=== PATIENT | male | born 1970 | race Caucasian/White ===

== ENCOUNTER 2019-11-09 16:20 | Inpatient (IN) | payer OTHER ==
--- NOTE | 2019-11-09 17:49 | HP ---
CIWA Score - Admission Criteria [facility] Guidelines: Admission for Medically Managed Detox: Requires at least one of the followin. CIWA greater than 12 2. Seizures within the past 24 hours 3. Delirium tremens within the past 24 hours 4. Hallucinations within the past 24 hours 5. Acute intervention needed for co occurring medical disorder 6. Acute intervention needed for co occurring psychiatric disorder 7. Severe withdrawal that cannot be handled at a lower level of care (continued vomiting, continued diarrhea, abnormal vital signs) requiring intravenous medication and/or fluids 8. Admitting History and Physical - Smoking History Smoking history: Unknown if ever smoked Patient History - Smoking Cessation Smoking history: Unknown if ever smoked Breathalyzer - Breathalyzer Breathalyzer: 0.215
--- NOTE | 2019-11-09 17:54 | BHS.RME ---
Substance Use & Tx History - Substance Use History Alcohol Substance amount: 3 x 12oz. beer Frequency of use: More than 3 times per week Date of Last Use: 10/12/19 (sent to ER for suicidal thoughts) - Last Treatment Date of last treatment: 1st admission Where was last treatment: Detox Physical/Psych/Mental Status - Behavior Eye Contact: Normal - Cooperativeness Cooperativeness: Cooperative - Thinking Thought Processes: Logical Thought content: Future oriented - Physical Health Problems Is patient presently having any pain?: No Does patient presently have any injuries (include location): No Does patient currently have a fever: No CIWA Nausea/Vomitin (vomiting x 5) Muscle Tremors: 4-Moderate,w/Arms Extend Anxiety: 3 Agitation: 3 Paroxysmal Sweats: 2 Orientation: 0-Oriented Tacttile Disturbances: 0-None Auditory Disturbances: 0-None Visual Disturbances: 0-None Headache: 0-None Present CIWA-Ar Total Score: 17 Treatment Recommendation - Level of Care Level of Care: Opioid Treatment Program (OTP) (Alcohol detoxification)
--- OUTSIDE RECORDS SUMMARY | 2019-11-09 19:14 | XMS ---
:1970 [facility] Organization [facility] Providers Name Role Phone FABIANO ROACH MD Unavailable Unavailable DAVISSEYENNI Buchanan Unavailable Unavailable ED STAFF PHYSICIAN Unavailable Unavailable MD BISMARK Unavailable Unavailable MD FLORA Unavailable Unavailable Re-disclosure Warning The records that you are about to access may contain information from federally- assisted alcohol or drug abuse programs. If such information is present, then the following federally mandated warning applies: This information has been disclosed to you from records protected by federal confidentiality rules (42 CFR part 2). The federal rules prohibit you from making any further disclosure of this information unless further disclosure is expressly permitted by the written consent of the person to whom it pertains or as otherwise permitted by 42 CFR part 2. A general authorization for the release of medical or other information is NOT sufficient for this purpose. The Federal rules restrict any use of the information to criminally investigate or prosecute any alcohol or drug abuse patient.The records that you are about to access may contain highly sensitive health information, the redisclosure of which is protected by Article 27-F of the [facility] Public Health law. If you continue you may haveaccess to information: Regarding HIV / AIDS; Provided by facilities licensed or operated by the [facility] Office of Mental Health; or Provided by the [facility] Office for People With Developmental Disabilities. If such information is present, then the following [facility] mandated warning applies: This information has been disclosed to you from confidential records which are protected by state law. State law prohibits you from making any further disclosure of this information without the specific written consent of the person to whom it pertains, or as otherwise permitted by law. Any unauthorized further disclosure in violation of state law may result in a fine or penitentiary sentence or both. A general authorization for the release of medical or other information is NOT sufficient authorization for further disclosure. Encounters Encounter Providers Location Date Indications Data Source(s ) Inpatient Attender: NOEMI [facility]56[facility]00 PM [facility]T [facility] AAttender: STAFF ED - 10/15/2019 STAFF 01:00:00 PM EDT PHYSICIANAdmitter: NOEMI FRANKLIN AReferrer: NOEMI FRANKLIN A Patient discharged. Inpatient Attender: [facility] 07[facility]13/2019 07:16[facility] ED[facility] - [address] [place] [address] 09:44:00 PM EDT Patient discharged. [facility] 07/13/2019 05:26:00 PM EDT - [address] [place] [address] 07:40:00 PM EDT Patient discharged. Inpatient Attender: [facility] 09/23/2018 09:33:00 [facility] - 10/16/2018 [facility] 10:21:00 PM EDT Patient discharged. Outpatient [facility] 09/23/2018 05:57:00 PM EDT - [address] [place] [address] 10:20:00 PM EDT Patient discharged. Medications Medication Brand Start Product Dose Route [facility] Indications Reaction Description Data Name Date Form Instructions Instructions Source(s) gabapentin Gabape ORAL complet Gabapen tin - [facility] 400 MG Oral ntin - 2018 Table ed 400 MG ORA L [facility] Tablet 400 MG 12:00: t Tablet Hospita l ORAL 00 AM Tablet EDT pantoprazol Proton ORAL complet Proton ix - [facility] e 40 MG ix - 2018 Table ed 40 MG ORAL Hal nts Delayed 40 MG 12:00: t Tablet, Hospit al Release ORAL 00 AM Enteric Oral Tablet Tablet EDT Coated [Protonix] , Enteri c Coated Loratadine Clarit ORAL complet Clariti n - [facility] 10 MG Oral in - 2018 Table ed 10 MG ORAL [facility] Tablet 10 MG 12:00: t Tablet Hospital [Claritin] ORAL 00 AM Tablet EDT pantoprazol Proton ORAL complet Proton ix - [facility] e 40 MG ix - 2018 Table ed 40 MG ORAL Hal nts Delayed 40 MG 12:00: t Tablet, Hospit al Release ORAL 00 AM Enteric Oral Tablet Tablet EDT Coated [Protonix] , Enteri c Coated gabapentin gabape 1 complet Vira t 400 MG Oral ntin ed Jacki Capsule 400 mg Medical gabapentin Capsul Center 400 mg e, Capsule, Ordere Ordered By: d [facility]: 1 David, capsule MDDire oral three ctions times a day : 1 capsul e oral three times a day Folic Acid foLIC 1 complet Saint 1 MG Oral Acid 1 ed Jacki Tablet mg Medical foLIC Acid Tablet Center 1 mg , Tablet, Ordere Ordered By: d By: [facility]: 1 tablet David, oral daily MDDire ctions : 1 tablet oral daily Clonazepam clonaz 1 complet Vira t 1 MG Oral ePAM 1 ed Jacki Tablet mg Medical clonazePAM Tablet Center 1 mg , Tablet, Ordere Ordered By: d By: [facility]: 1 tablet David, oral twice MDDire a day ctions : 1 tablet oral twice a day Omeprazole omepra 1 complet Vira t 20 MG zole ed Jacki Delayed 20 mg Medical Release capsul Center Oral e,blas Capsule yed omeprazole releas 20 mg e(DR/Olga capsule,del C), ayed Ordere release(DR/ d By: ANGELIC), Childe Ordered By: vanna [facility] MDDirection MDDire s: 1 ctions capsule : 1 oral daily capsul e oral daily oxcarbazepi OXcarb 1 complet Soham nt ne 600 MG azepin ed Jacki Oral Tablet e 600 Medical OXcarbazepi mg Center ne 600 mg Tablet Tablet, , Ordered By: Shiraz rincon By: Basilio Bustos MDDirection [facility] s: [address] oral twice David, a day MDDire ctions : 1 tablet oral twice a day nalOXone Naloxo 1 complet Narcan Vira t (Narcan) 4 ne ed [facility] mg/actuatio Hydroc Medica l n hlorid Center spray,non-a e 40 erosol, MG/ML Ordered By: Nasal Childebert Cold[place], [facility] 1 puff nasal every two hours PRN substance misuse OLANZapine complet [facility] 5 mg Tablet [facility] OLANZapine complet [facility] 20 mg [facility] OLANZapine complet [facility] 10 mg [facility] loratadine complet [facility] 10 mg [facility] OLANZapine complet [facility] 20 mg [facility] Insurance Providers Payer name Policy type Policy ID Covered Covered alliance party's Policy P serina / Coverage alliance party ID relationship to Delaney Inf ormation type delaney W [id number] 01 [id number] DEMETRI W [id number] 01 [id number] DEMETRI CARE W [id number] [id number] DEMETRI [id number] SP [id number] 600 HEALTH NON CAP DEMETRI [id number] SP [id number] 600 HEALTH NON CAP SELF PAY [id number] Self [id number] MEDICAID INP [id number] Self [id number] Y REHAB [facility] DEMETRI [id number] Self [id number] CARE SELF PAY 00 Self 00 MEDICAID INP [id number] Self [id number] Y REHAB Problems, Conditions, and Diagnoses Code Display Name Description Problem Type Effective Data Sour ce(s) Dates 62191815 Bipolar disorder Bipolar disorder Complaint 09/23/2018 [facility]00 PM Hospital EDT [id number] Tobacco user Tobacco user Complaint 09/23/2018 [facility] (finding[facility] 12:[facility]:00 PM Hospital EDT [id number] Cocaine abuse Cocaine abuse Complaint 09/23/2018 [facility]order[facility] 12:00:00 PM Hospital EDT [id number] Alcohol abuse Alcohol abuse Complaint 09/23/2018 [facility] (disorder) 12:00:00 PM Hospital EDT R19.7 Diarrhea, DIARRHEA, Diagnosis 10/15/2019 [facility] unspecified UNSPECIFIED 01:00:[address] EDT K21.9 Gastro-esophageal GASTRO-ESOPHAGEAL Diagnosis 10/15/2019 [facility] reflux disease REFLUX DISEASE 01:00:00 PM Medic al Center without WITHOUT EDT esophagitis ESOPHAGITIS Y90.7 Blood alcohol BLOOD ALCOHOL Diagnosis 10/15/2019 [facility]ov[facility] fernández level of 200-239 LEVEL OF 200-239 [facility]:00:[facility] [place] [facility]100 ml MG/100 ML EDT F10.229 Alcohol ALCOHOL Diagnosis 10/15/2019 [facility] dependence with DEPENDENCE WITH 01:00:00 PM Med ical Center intoxication, INTOXICATION, EDT unspecified UNSPECIFIED E87.1 Hypo-osmolality HYPO-OSMOLALITY Diagnosis 10/15/2019 Vira yris Jacki and hyponatremia AND HYPONATREMIA 01:00:00 PM [facility] EDT F10.239 Alcohol ALCOHOL Diagnosis 10/12/2019 [facility] dependence with DEPENDENCE WITH 11:56:00 PM Med ical Center withdrawal, WITHDRAWAL, EDT unspecified UNSPECIFIED Results ID Date Data Source CHMROUTINECCDA.[id number] 10/15/2019 06:01:00 AM EDT [facility] -0400 Name Value Range Interpretation Description Data Sup porting Code Source(s) Document(s ) Phosphate 2.5-4.5 <content [facility] [Mass/volume] styleCode="Fred Jacki in Serum or d">Phosphorus Medical Plasma </content>3.8 Center MG/DL<content styleCode="Abiola lics"> (2.5-4.5 MG/DL)</conten t> Magnesium 1.6-2.3 <content [facility] [Mass/volume] styleCode="Fred Jacki in Serum or d">Magnesium Medical Plasma </content>2.2 Center MG/DL<content styleCode="Abiola lics"> (1.6-2.3 MG/DL)</conten t> ID Date Data Source Liver 10/14/2019 07:21:00 AM EDT [facility] Profile.[id number] Name Value Range Interpretation Description Data Sup porting Code Source(s) Document(s ) Alkaline 38-126 <content [facility] phosphatase styleCode="Bold"> Jacki [Enzymatic Alkaline Medical activity/volume] Phosphatase (ALP) Cente r in Serum or Plasma </content>69 IU/L<content styleCode="Italic s"> (38-126 IU/L)</content> Aspartate 17-59 <content [facility] aminotransferase styleCode="Bold"> Mac hs [Enzymatic Aspartate Medical activity/volume] Aminotransferase Center in Serum or Plasma (AST) </content>52 IU/L<content styleCode="Italic s"> (17-59 IU/L)</content> Alanine 7-50 <content [facility] aminotransferase styleCode="Bold"> Mac hs [Enzymatic Alanine Medical activity/volume] Aminotransferase Center in Serum or Plasma (ALT) </content>18 IU/L<content styleCode="Italic s"> (7-50 IU/L)</content> Bilirubin.total 0.2-1.3 <content [facility] [Mass/volume] in styleCode="Bold"> Mac hs Serum or Plasma Bilirubin Total Medical </content>0.7 Center MG/DL<content styleCode="Italic s"> (0.2-1.3 MG/DL)</content> Albumin 3.5-5.0 <content [facility] [Mass/volume] in styleCode="Bold"> Mac hs Serum or Plasma Albumin Medical </content>3.5 Center G/DL<content styleCode="Italic s"> (3.5-5.0 G/DL)</content> ID Date Data Source GFR(Creatinine).[id number] 10/14/2019 07:21:00 AM EDT [facility] 0-0400 Name Value Range Interpretation Code Description Data Caitlin rce(s) Supporting Document(s ) UNK > 60 <content [facility] styleCode="Bold"> Medical Cent er EGFR </content>110 GFR<content styleCode="Italic s"> (> 60 GFR)</content> ID Date Data Source CHMROUTINECCDA.[id number] 10/14/2019 07:21:00 AM EDT [facility] -0400 Name Value Range Interpretation Description Data Sup porting Code Source(s) Document(s ) UNK 2.3-3.5 <content [facility] styleCode="Bold Medical ">Globulin Center </content>3.2 G/DL<content styleCode="Ital ics"> (2.3-3.5 G/DL)</content> Protein 6.3-8.2 <content [facility] Jacki [Mass/volum styleCode="Bold Medical e] in Serum ">Total Protein Center or Plasma </content>6.7 G/DL<content styleCode="Ital ics"> (6.3-8.2 G/DL)</content> UNK >= 1.0 <content [facility] Jacki styleCode="Bold Medical ">AG Ratio Center </content>1.1 <content styleCode="Ital ics"> (>= 1.0 )</content> ID Date Data Source [facility].[id number] 10/14/2019 07:21:00 AM EDT [facility] Center Name Value Range Interpretation Description Data Sup porting Code Source(s) Document(s ) Sodium 137-145 Below low <content [facility] [Moles/volume] in normal styleCode="Bold"> [facility] Serum or Plasma Sodium Medical </content>133 Center MEQ/L L<content styleCode="Italic s"> (137-145 MEQ/L)</content> Potassium 3.5-5.3 <content [facility] [Moles/volume] in styleCode="Bold"> Robbie [facility] Serum or Plasma Potassium Medical </content>4.0 Center MEQ/L<content styleCode="Italic s"> (3.5-5.3 MEQ/L)</content> UNK 9-20 Below low <content [facility] normal styleCode="Bold"> Jacki BUN </content>7 Medical MG/DL L<content Center styleCode="Italic s"> (9-20 MG/DL)</content> Creatinine 0.5-1.3 <content [facility] [Mass/volume] in styleCode="Bold"> Mac hs Serum or Plasma Creatinine Medical </content>0.8 Center MG/DL<content styleCode="Italic s"> (0.5-1.3 MG/DL)</content> Chloride 98-107 <content [facility] [Moles/volume] in styleCode="Bold"> [facility] Serum or Plasma Chloride Medical </content>104 Center MEQ/L<content styleCode="Italic s"> (98-107 MEQ/L)</content> Carbon dioxide, 22-30 <content [facility] total styleCode="Bold"> Jacki [Moles/volume] in Carbon Dioxide Medical Serum or Plasma </content>24 Center MEQ/L<content styleCode="Italic s"> (22-30 MEQ/L)</content> Alanine 7-50 <content [facility] aminotransferase styleCode="Bold"> Mac hs [Enzymatic Alanine Medical activity/volume] Aminotransferase Center in Serum or Plasma (ALT) </content>18 IU/L<content styleCode="Italic s"> (7-50 IU/L)</content> Glucose 74-106 Above high <content Saint [Mass/volume] in normal styleCode="Bold"> Mac hs Serum or Plasma Glucose Medical </content>112 Center MG/DL H<content styleCode="Italic s"> (74-106 MG/DL)</content> Calcium 8.4-10. <content [facility] [Mass/volume] in 2 styleCode="Bold"> Mac hs Serum or Plasma Calcium Medical </content>9.2 Center MG/DL<content styleCode="Italic s"> (8.4-10.2 MG/DL)</content> Aspartate 17-59 <content [facility] aminotransferase styleCode="Bold"> Mac hs [Enzymatic Aspartate Medical activity/volume] Aminotransferase Center in Serum or Plasma (AST) </content>52 IU/L<content styleCode="Italic s"> (17-59 IU/L)</content> UNK > 60 <content Saint styleCode="Bold"> Jacki EGFR Medical </content>110 Center GFR<content styleCode="Italic s"> (> 60 GFR)</content> Alkaline 38-126 <content [facility] phosphatase styleCode="Bold"> Jacki [Enzymatic Alkaline Medical activity/volume] Phosphatase (ALP) Cente r in Serum or Plasma </content>69 IU/L<content styleCode="Italic s"> (38-126 IU/L)</content> Bilirubin.total 0.2-1.3 <content [facility] [Mass/volume] in styleCode="Bold"> Mac hs Serum or Plasma Bilirubin Total Medical </content>0.7 Center MG/DL<content styleCode="Italic s"> (0.2-1.3 MG/DL)</content> Albumin 3.5-5.0 <content [facility] [Mass/volume] in styleCode="Bold"> Mac hs Serum or Plasma Albumin Medical </content>3.5 Center G/DL<content styleCode="Italic s"> (3.5-5.0 G/DL)</content> ID Date Data Source Urinalysis.[id number] 10/13/2019 01:50:00 AM EDT [facility] 0 Name Value Range Interpretation Description Data Sup porting Code Source(s) Document(s ) UNK CLEAR <content Saint styleCode="Fred Trivedis d">Urine Medical Clarity Center </content>MARYLU R <content styleCode="Abiola lics"> (CLEAR )</content> UNK NEGATIVE <content [facility] styleCode[facility]">Urine Medical Bilirubin Center </content>NEGA TIVE <content styleCode="Abiola lics"> (NEGATIVE )</content> Color of Urine YELLOW <content Saint styleCode="Fred Trivedis d">Color, Medical Urine Center </content>YELL OW <content styleCode="Abiola lics"> (YELLOW )</content> Glucose NEGATIVE <content [facility] [Mass/volume] styleCode="Fred Echeverria in Urine by d">Urine Medical Test strip Glucose Center </content>NEGA TIVE MG/DL<content styleCode="Abiola lics"> (NEGATIVE MG/DL)</conten t> Hemoglobin NEGATIVE <content [facility] [Presence] in styleCode="Fred Trivedis Urine by Test d">Urine Blood Medical strip </content>NEGA Center TIVE <content styleCode="Abiola lics"> (NEGATIVE )</content> Protein NEGATIVE <content Saint [Mass/volume] styleCode="Fred Trivedis in Urine by d">Urine Medical Test strip Protein Center </content>NEGA TIVE MG/DL<content styleCode="Abiola lics"> (NEGATIVE MG/DL)</conten t> pH of Urine by 4.5-8.0 <content Saint Test strip styleCode="Fred Jacki d">Urine pH Medical </content>6.5 Center <content styleCode="Abiola lics"> (4.5-8.0 )</content> Ketones NEGATIVE <content Saint [Mass/volume] styleCode="Fred Jacki in Urine by d">Urine Medical Test strip Ketone Center </content>NEGA TIVE MG/DL<content styleCode="Abiola lics"> (NEGATIVE MG/DL)</conten t> Specific 1.015-1.02 Below low normal <content [facility] gravity of 5 styleCode="Fred Trivedis Urine by Test d">Urine Medical strip Specific Center Beals </content><= 1.005 L<content styleCode="Abiola lics"> (1.015-1.025 )</content> Nitrite NEGATIVE <content Saint [Presence] in styleCode="Fred Trivedis Urine by Test d">Urine Medical strip Nitrite Center </content>NEGA TIVE <content styleCode="Abiola lics"> (NEGATIVE )</content> Urobilinogen 0.2-1.0 <content Saint [Units/volume] styleCode="Fred Trivedis in Urine by d">Urine Medical Test strip Urobilinogen Center </content>0.2 MG/DL<content styleCode="Abiola lics"> (0.2-1.0 MG/DL)</conten t> Leukocyte NEGATIVE <content [facility] esterase styleCode="Fred Trivedis [Presence] in d">Urine Medical Urine by Test Leukocyte Center strip </content>NEGA TIVE <content styleCode="Abiola lics"> (NEGATIVE )</content> ID Date Data Source Liver 10/13/2019 01:50:00 AM EDT [facility] Profile.[id number] Name Value Range Interpretation Description Data Sup porting Code Source(s) Document(s ) Alkaline 38-126 <content [facility] phosphatase styleCode="Bold"> Jacki [Enzymatic Alkaline Medical activity/volume] Phosphatase (ALP) Cente r in Serum or Plasma </content>70 IU/L<content styleCode="Italic s"> (38-126 IU/L)</content> Alanine 7-50 <content [facility] aminotransferase styleCode="Bold"> Mac hs [Enzymatic Alanine Medical activity/volume] Aminotransferase Center in Serum or Plasma (ALT) </content>19 IU/L<content styleCode="Italic s"> (7-50 IU/L)</content> Aspartate 17-59 <content [facility] aminotransferase styleCode="Bold"> Mac hs [Enzymatic Aspartate Medical activity/volume] Aminotransferase Center in Serum or Plasma (AST) </content>42 IU/L<content styleCode="Italic s"> (17-59 IU/L)</content> Bilirubin.total 0.2-1.3 <content Saint [Mass/volume] in styleCode="Bold"> Mac hs Serum or Plasma Bilirubin Total Medical </content>0.3 Center MG/DL<content styleCode="Italic s"> (0.2-1.3 MG/DL)</content> UNK 0.0-0.3 <content Saint styleCode="Bold"> [facility] Bilirubin, Direct Medical </content>< 0.2 Center MG/DL<content styleCode="Italic s"> (0.0-0.3 MG/DL)</content> Albumin 3.5-5.0 <content Saint [Mass/volume] in styleCode="Bold"> Mac hs Serum or Plasma Albumin Medical </content>4.4 Center G/DL<content styleCode="Italic s"> (3.5-5.0 G/DL)</content> ID Date Data Source HematologyRou.[id number] 10/13/2019 01:50:00 AM EDT [facility]am nt [facility] 0400 Name Value Range Interpretation Description Data Sup porting Code Source(s) Document(s ) Leukocytes 4.4-11.0 <content Saint [#/volume] in styleCode="Bold [facility] Blood by ">White Blood Medical Automated count Cell Count Center </content>7.65 KCUMM<content styleCode="Ital ics"> (4.4-11.0 KCUMM)</content > Hemoglobin 13.5-17. <content Saint [Mass/volume] in 5 styleCode="Bold Jacki Blood ">Hemoglobin Medical </content>14.6 Center G/DL<content styleCode="Ital ics"> (13.5-17.5 G/DL)</content> Erythrocytes 4.4-5.9 <content Saint [#/volume] in styleCode="Bold Jacki Blood by ">Red Blood Medical Automated count Cell Count Center </content>4.62 MCUMM<content styleCode="Ital ics"> (4.4-5.9 MCUMM)</content > Erythrocyte mean 80.0-100 <content Saint corpuscular .0 styleCode="Bold Jacki volume [Entitic ">Mean Medical volume] by Corpuscular Center Automated count Volume </content>94.2 FL<content styleCode="Ital ics"> (80.0-100.0 FL)</content> Hematocrit 41.0-53. <content Saint [Volume 0 styleCode="Bold Jacki Fraction] of ">Hematocrit Medical Blood by </content>43.5 Center Automated count %<content styleCode="Ital ics"> (41.0-53.0 %)</content> Erythrocyte mean 32.0-37. <content [facility] corpuscular 0 styleCode="Bold Jacki hemoglobin ">Mean Corpus. Medical concentration Hgb Center [Mass/volume] by Concentration Automated count (MCHC) </content>33.6 G/DL<content styleCode="Ital ics"> (32.0-37.0 G/DL)</content> Erythrocyte mean 26.0-34. <content [facility] corpuscular 0 styleCode="Bold Jacki hemoglobin ">Mean Medical [Entitic mass] Corposcular Center by Automated Hemoglobin count </content>31.6 PG<content styleCode="Ital ics"> (26.0-34.0 PG)</content> Platelets 130-400 Above high <content Saint [#/volume] in normal styleCode="Bold Jacki Blood by ">Platelet Medical Automated count Count Center </content>410 KCUMM H<content styleCode="Ital ics"> (130-400 KCUMM)</content > Erythrocyte 11.5-14. <content [facility] distribution 5 styleCode="Bold Jacki width [Ratio] by ">Red Cell Medical Automated count Distribution Center Width </content>13.4 %<content styleCode="Ital ics"> (11.5-14.5 %)</content> Platelet mean 8.0-11.0 <content Saint volume [Entitic styleCode="Bold Jacki volume] in Blood ">Mean Platelet Medical by Automated Volume Center count </content>9.4 FL<content styleCode="Ital ics"> (8.0-11.0 FL)</content> UNK 0 <content Saint styleCode="Bold Jacki ">Nucleated Red Medical Blood Cell Center </content>0.0 /100<content styleCode="Ital ics"> (0 /100)</content> UNK 0.0 <content Saint styleCode="Bold Jacki ">Nucleated Red Medical Blood Cell Center Count </content>0.00 KCUMM<content styleCode="Ital ics"> (0.0 KCUMM)</content > ID Date Data Source GFR(Creatinine).[id number] 10/13/2019 01:50:00 AM EDT [facility] 0-0400 Name Value Range Interpretation Code Description Data Caitlin rce(s) Supporting Document(s ) UNK > 60 <content [facility] Jacki styleCode="Bold"> Medical Cent er EGFR </content>110 GFR<content styleCode="Italic s"> (> 60 GFR)</content> ID Date Data Source CHMROUTINECCDA.[id number] 10/13/2019 01:50:00 AM EDT [facility] -0400 Name Value Range Interpretation Description Data Sup porting Code Source(s) Document(s ) Cannabinoids <content Saint [Presence] in styleCode="Fred Jacki Urine by Screen d">Cannabinoid Medical method >50 ng/mL s Center </content>NEGA TIVE NG/ML (Reference Range: not available)<br/ > ID Date Data Source BMP.[id number] 10/13/2019 01:50:00 AM EDT [facility] Name Value Range Interpretation Description Data Sup porting Code Source(s) Document(s ) Chloride 98-107 <content Saint [Moles/volume] in styleCode="Bold"> Robbie phs Serum or Plasma Chloride Medical </content>105 Center MEQ/L<content styleCode="Italic s"> (98-107 MEQ/L)</content> Carbon dioxide, 22-30 Below low <content [facility] total normal styleCode="Bold"> Jacki [Moles/volume] in Carbon Dioxide Medical Serum or Plasma </content>20 Center MEQ/L L<content styleCode="Italic s"> (22-30 MEQ/L)</content> UNK 9-20 Below low <content [facility] normal styleCode="Bold"> Jacki BUN </content>2 Medical MG/DL L<content Center styleCode="Italic s"> (9-20 MG/DL)</content> Potassium 3.5-5.3 <content Saint [Moles/volume] in styleCode="Bold"> Robbie [facility] Serum or Plasma Potassium Medical </content>3.5 Center MEQ/L<content styleCode="Italic s"> (3.5-5.3 MEQ/L)</content> Sodium 137-145 <content Saint [Moles/volume] in styleCode="Bold"> Robbie [facility] Serum or Plasma Sodium Medical </content>141 Center MEQ/L<content styleCode="Italic s"> (137-145 MEQ/L)</content> Glucose 74-106 <content Saint [Mass/volume] in styleCode="Bold"> Mac hs Serum or Plasma Glucose Medical </content>87 Center MG/DL<content styleCode="Italic s"> (74-106 MG/DL)</content> UNK > 60 <content Saint styleCode="Bold"> Jacki EGFR Medical </content>110 Center GFR<content styleCode="Italic s"> (> 60 GFR)</content> Creatinine 0.5-1.3 <content Saint [Mass/volume] in styleCode="Bold"> Mac hs Serum or Plasma Creatinine Medical </content>0.8 Center MG/DL<content styleCode="Italic s"> (0.5-1.3 MG/DL)</content> Aspartate 17-59 <content [facility] aminotransferase styleCode="Bold"> Mac hs [Enzymatic Aspartate Medical activity/volume] Aminotransferase Center in Serum or Plasma (AST) </content>42 IU/L<content styleCode="Italic s"> (17-59 IU/L)</content> Calcium 8.4-10. <content Saint [Mass/volume] in 2 styleCode="Bold"> Mac hs Serum or Plasma Calcium Medical </content>9.6 Center MG/DL<content styleCode="Italic s"> (8.4-10.2 MG/DL)</content> Alanine 7-50 <content [facility] aminotransferase styleCode="Bold"> Mac hs [Enzymatic Alanine Medical activity/volume] Aminotransferase Center in Serum or Plasma (ALT) </content>19 IU/L<content styleCode="Italic s"> (7-50 IU/L)</content> Alkaline 38-126 <content [facility] phosphatase styleCode="Bold"> Jacki [Enzymatic Alkaline Medical activity/volume] Phosphatase (ALP) Cente r in Serum or Plasma </content>70 IU/L<content styleCode="Italic s"> (38-126 IU/L)</content> Bilirubin.total 0.2-1.3 <content [facility] [Mass/volume] in styleCode="Bold"> Mac hs Serum or Plasma Bilirubin Total Medical </content>0.3 Center MG/DL<content styleCode="Italic s"> (0.2-1.3 MG/DL)</content> Albumin 3.5-5.0 <content [facility] [Mass/volume] in styleCode="Bold"> Mac hs Serum or Plasma Albumin Medical </content>4.4 Center G/DL<content styleCode="Italic s"> (3.5-5.0 G/DL)</content> ID Date Data Source [id number] 10/13/2019 12:00:00 AM EDT [facility] Name Value Range Interpretation Code Description Data Caitlin rce(s) Supporting Document(s ) 2019-nCoV [facility] RNA XXX NAVID+probe- Imp This lab was ordered by [facility] and reported by [facility] [facility]. ID Date Data Source [id number] 09/27/2019 07:00:00 PM EDT [facility] Name Value Range Interpretation Description Data Sup porting Code Source(s) Document(s ) 2019 Novel [facility] Coronavirus RNA Interpretation Unspecified Specimen Qualitative NAVID Probe Detection This lab was ordered by [facility] and reported by [facility]. ID Date Data Source [id number] 2019 07:13:00 PM EDT [facility] Name Value Range Interpretation Description Data Sup porting Code Source(s) Document(s ) SARS [facility] Coronavirus 2 RNA Presence Respiratory Specimen NAVID Probe Detection This lab was ordered by [facility] and reported by [facility]. ID Date Data Source [id number] 08/30/2019 04:49:00 PM EDT [facility] Name Value Range Interpretation Description Data Sup porting Code Source(s) Document(s ) SARS [facility] Coronavirus 2 RNA Presence Respiratory Specimen NAVID Probe Detection This lab was ordered by [facility] and reported by [facility]. ID Date Data Source [id number] 07/05/2019 01:57:00 PM EDT [facility] Name Value Range Interpretation Description Data Sup porting Code Source(s) Document(s ) COV2N [facility] NASOPHARYNGEAL Reportable This lab was ordered by [facility] and reported by [facility]. ID Date Data Source [id number] 06/17/2019 11:41:00 AM EDT [facility] Name Value Range Interpretation Description Data Sup porting Code Source(s) Document(s ) SARS [facility] Coronavirus 2 RNA Presence Respiratory Specimen NAVID Probe Detection This lab was ordered by [facility] and reported by [facility]. Procedure Social History Code Duration Value Status Description Data Source(s ) Smoking 10/13/2019 12:33:00 Daily Smoker completed Daily Smoker S [facility] EDT Center Smoking 10/13/2019 07:22:00 Daily Smoker completed Daily Smoker S [facility] EDT Center Smoking 10/13/2019 02:36:00 Daily Smoker completed Daily Smoker S [facility] EDT Center Smoking 10/13/2019 12:06:00 Daily Smoker completed Daily Smoker S [facility] EDT Center Smoking 10/13/2019 12:01:00 Daily Smoker completed Daily Smoker S [facility] EDT Center Vital Signs ID Date Data Source UNK Name Value Range Interpretation Code Description Data Source(s) Body temperature 36.476116 Shira 36.864553 [facility] Respiratory rate 18 /min 18 /min [facility] Heart rate 72 /min 72 /min [facility] Diastolic blood 48 mm[Hg] 48 mm[Hg] [facility] Systolic blood 90 mm[Hg] 90 mm[Hg] [facility] Body temperature 36.459343 Shira 36.074795 Shira [facility] Respiratory rate 20 /min 20 /min [facility] Heart rate 76 /min 76 /min [facility] Diastolic blood 55 mm[Hg] 55 mm[Hg] [facility] Systolic blood 107 mm[Hg] 107 mm[Hg] [facility] Body temperature 36.437773 Shira 36.603339 Sh[facility] Respiratory rate 18 /min 18 /min [facility] Heart rate 62 /min 62 /min [facility] Diastolic blood 53 mm[Hg] 53 mm[Hg] [facility] Systolic blood 97 mm[Hg] 97 mm[Hg] [facility] Body temperature 36.915659 Shira 36.907280 Shira [facility] Respiratory rate 20 /min 20 /min [facility] Heart rate 80 /min 80 /min [facility] Diastolic blood 70 mm[Hg] 70 mm[Hg] [facility] Systolic blood 120 mm[Hg] 120 mm[Hg] [facility] Body temperature 37.100321 Shira 37.267569 Shira [facility] Respiratory rate 18 /min 18 /min [facility] Heart rate 79 /min 79 /min [facility] Diastolic blood 67 mm[Hg] 67 mm[Hg] [facility] Systolic blood 110 mm[Hg] 110 mm[Hg] [facility] Medical Center Body weight 79.920348 kg 79.274852 kg [facility] Measured [facility] Center Body height 182.300398 cm 182.622033 cm [facility] Body mass index 23.68 kg/m2 23.68 kg/m2 [facility] (BMI) [Ratio] Medical Center Body height 182.925236 cm 182.704883 cm [facility] Body temperature 37.279822 Shira 37.070339 [facility] Respiratory rate 20 /min 20 /min [facility] Heart rate 92 /min 92 /min [facility] Diastolic blood 64 mm[Hg] 64 mm[Hg] [facility] Systolic blood 105 mm[Hg] 105 mm[Hg] [facility] Body temperature 36.874307 Shira 36.486090 Shira [facility] Respiratory rate 18 /min 18 /min [facility] Heart rate 83 /min 83 /min [facility] Diastolic blood 72 mm[Hg] 72 mm[Hg] [facility] Systolic blood 115 mm[Hg] 115 mm[Hg] [facility] Medical Center Oxygen 99 % 99 % [facility] saturation in Medical Arterial blood Center by Pulse oximetry Body temperature 37.459497 Shira 37.319196 Shira [facility] Respiratory rate 18 /min 18 /min [facility] Heart rate 96 /min 96 /min [facility] Diastolic blood 72 mm[Hg] 72 mm[Hg] [facility] Systolic blood 106 mm[Hg] 106 mm[Hg] [facility] Medical Center Oxygen 97 % 97 % [facility] saturation in Medical Arterial blood Center by Pulse oximetry Body temperature 37.016081 Shira 37.851749 Shira [facility] Respiratory rate 17 /min 17 /min [facility] Heart rate 95 /min 95 /min [facility] Diastolic blood 70 mm[Hg] 70 mm[Hg] [facility] Systolic blood 104 mm[Hg] 104 mm[Hg] [facility] Center Oxygen 95 % 95 % [facility] saturation in Medical Arterial blood Center by Pulse oximetry Body temperature 37.111420 Shira 37.212285 Shira [facility] Respiratory rate 17 /min 17 /min [facility] Medical [place] Heart rate 97 /min 97 /min [facility] Diastolic blood 70 mm[Hg] 70 mm[Hg] [facility] pressure Medical Center Systolic blood 104 mm[Hg] 104 mm[Hg] [facility] pressure Medical Center Oxygen 98 % 98 % [facility] saturation in Medical Arterial blood Center by Pulse oximetry Oxygen 99 % 99 % [facility] saturation in Medical Arterial blood Center by Pulse oximetry Body weight 196 lbs 196 lbs [facility] Body temperature 97.4 Fahrenheit 97.4 Fahrenh t [facility] Diastolic blood 78 mmHg 78 mmHg [facility] Systolic blood 116 mmHg 116 mmHg [facility] Respiratory rate 18 bpm 18 bpm [facility] Heart rate 97 bpm 97 bpm [facility] Body temperature 96.9 Fahrenheit 96.9 Fahrenh t [facility] Diastolic blood 74 mmHg 74 mmHg [facility] Systolic blood 106 mmHg 106 mmHg [facility] Respiratory rate 18 bpm 18 bpm [facility] Heart rate 87 bpm 87 bpm [facility] Body temperature 97.4 Fahrenheit 97.4 Fahrenh t [facility] Body temperature 97.2 Fahrenheit 97.2 Fahrenh t [facility] Diastolic blood 75 mmHg 75 mmHg [facility] Systolic blood 124 mmHg 124 mmHg [facility] Respiratory rate 18 bpm 18 bpm [facility] Heart rate 96 bpm 96 bpm [facility] Body temperature 96.7 Fahrenheit 96.7 Fahrenh t [facility] Diastolic blood 76 mmHg 76 mmHg [facility] Systolic blood 108 mmHg 108 mmHg [facility] Respiratory rate 18 bpm 18 bpm [facility] Heart rate 96 bpm 96 bpm [facility] Body temperature 96.7 Fahrenheit 96.7 Fahrenh t [facility] Body temperature 96.9 Fahrenheit 96.9 Fahrenh t [facility] Body weight 195 lbs 195 lbs [facility] Diastolic blood 81 mmHg 81 mmHg [facility] Systolic blood 112 mmHg 112 mmHg [facility] Respiratory rate 18 bpm 18 bpm [facility] Heart rate 87 bpm 87 bpm [facility] Body temperature 96.5 Fahrenheit 96.5 Fahrenhei t [facility] Diastolic blood 73 mmHg 73 mmHg [facility] Systolic blood 114 mmHg 114 mmHg [facility] Respiratory rate 18 bpm 18 bpm [facility] Heart rate 87 bpm 87 bpm [facility] Body temperature 97.0 Fahrenheit 97.0 Fahrenhei t [facility] Diastolic blood 77 mmHg 77 mmHg [facility] Systolic blood 116 mmHg 116 mmHg [facility] Respiratory rate 18 bpm 18 bpm [facility] Heart rate 84 bpm 84 bpm [facility] Body temperature 97.1 Fahrenheit 97.1 Fahrenhei t [facility] Diastolic blood 75 mmHg 75 mmHg [facility] Systolic blood 112 mmHg 112 mmHg [facility] Respiratory rate 18 bpm 18 bpm [facility] Heart rate 80 bpm 80 bpm [facility] Body temperature 97.1 Fahrenheit 97.1 Fahrenhei t [facility] Diastolic blood 78 mmHg 78 mmHg [facility] Systolic blood 119 mmHg 119 mmHg [facility] Respiratory rate 18 bpm 18 bpm [facility] Heart rate 82 bpm 82 bpm [facility] Body temperature 97.2 Fahrenheit 97.2 Fahrenhei t [facility] Diastolic blood 79 mmHg 79 mmHg [facility] Systolic blood 110 mmHg 110 mmHg [facility] Respiratory rate 18 bpm 18 bpm [facility] Heart rate 91 bpm 91 bpm [facility] Body temperature 97.2 Fahrenheit 97.2 Fahrenhei t [facility] Diastolic blood 64 mmHg 64 mmHg [facility] Systolic blood 117 mmHg 117 mmHg [facility] Heart rate 88 bpm 88 bpm [facility] Body temperature 96.7 Fahrenheit 96.7 Fahrenhei t [facility] Diastolic blood 75 mmHg 75 mmHg [facility] Systolic blood 114 mmHg 114 mmHg [facility] Respiratory rate 18 bpm 18 bpm [facility] Heart rate 72 bpm 72 bpm [facility] Body weight 204 lbs 204 lbs [facility] Diastolic blood 80 mmHg 80 mmHg [facility] Systolic blood 120 mmHg 120 mmHg [facility] Respiratory rate 18 bpm 18 bpm [facility] Heart rate 70 bpm 70 bpm [facility] Diastolic blood 83 mmHg 83 mmHg [facility] Systolic blood 118 mmHg 118 mmHg [facility] Respiratory rate 18 bpm 18 bpm [facility] Heart rate 84 bpm 84 bpm [facility] Body temperature 96.4 Fahrenheit 96.4 Fahrenhei t [facility] Diastolic blood 82 mmHg 82 mmHg [facility] Systolic blood 114 mmHg 114 mmHg [facility] Respiratory rate 18 bpm 18 bpm [facility] Heart rate 89 bpm 89 bpm [facility] Body weight 206 lbs 206 lbs [facility] Diastolic blood 70 mmHg 70 mmHg [facility] Systolic blood 100 mmHg 100 mmHg [facility] Respiratory rate 18 bpm 18 bpm [facility] Heart rate 93 bpm 93 bpm [facility] Body temperature 97.8 Fahrenheit 97.8 Fahrenhei t [facility] Diastolic blood 81 mmHg 81 mmHg [facility] Systolic blood 112 mmHg 112 mmHg [facility] Respiratory rate 18 bpm 18 bpm [facility] Heart rate 88 bpm 88 bpm [facility] Body temperature 96.0 Fahrenheit 96.0 Fahrenhei t [facility] Diastolic blood 83 mmHg 83 mmHg [facility] Systolic blood 112 mmHg 112 mmHg [facility] Respiratory rate 18 bpm 18 bpm [facility] Heart rate 83 bpm 83 bpm [facility] Body temperature 96.1 Fahrenheit 96.1 Fahrenhei t [facility] Diastolic blood 76 mmHg 76 mmHg [facility] Systolic blood 120 mmHg 120 mmHg [facility] Respiratory rate 16 bpm 16 bpm [facility] Heart rate 91 bpm 91 bpm [facility] Body temperature 96.6 Fahrenheit 96.6 Fahrenhei t [facility] Diastolic blood 83 mmHg 83 mmHg [facility] Systolic blood 122 mmHg 122 mmHg [facility] Respiratory rate 18 bpm 18 bpm [facility] Heart rate 109 bpm 109 bpm [facility] Diastolic blood 86 mmHg 86 mmHg [facility] Systolic blood 118 mmHg 118 mmHg [facility] Respiratory rate 18 bpm 18 bpm [facility] Heart rate 90 bpm 90 bpm [facility] Body temperature 96.3 Fahrenheit 96.3 Fahrenhei t [facility] Diastolic blood 95 mmHg 95 mmHg [facility] Systolic blood 126 mmHg 126 mmHg [facility] Respiratory rate 18 bpm 18 bpm [facility] Heart rate 107 bpm 107 bpm [facility] Body weight 206 lbs 206 lbs [facility] Diastolic blood 77 mmHg 77 mmHg [facility] Systolic blood 110 mmHg 110 mmHg [facility] Respiratory rate 18 bpm 18 bpm [facility] Heart rate 86 bpm 86 bpm [facility] Diastolic blood 87 mmHg 87 mmHg [facility] Systolic blood 121 mmHg 121 mmHg [facility] Respiratory rate 18 bpm 18 bpm [facility] Heart rate 107 bpm 107 bpm [facility] Body temperature 97.4 Fahrenheit 97.4 Fahrenhei t [facility] Diastolic blood 79 mmHg 79 mmHg [facility] Systolic blood 111 mmHg 111 mmHg [facility] Respiratory rate 16 bpm 16 bpm [facility] Heart rate 89 bpm 89 bpm [facility] Body temperature 97.1 Fahrenheit 97.1 Fahrenhei t [facility] Diastolic blood 73 mmHg 73 mmHg [facility] Systolic blood 115 mmHg 115 mmHg [facility] Respiratory rate 18 bpm 18 bpm [facility] Heart rate 104 bpm 104 bpm [facility] Body temperature 97.4 Fahrenheit 97.4 Fahrenhei t [facility] ID Date Data Source [id number] 07/26/2019 09:21:32 AM T [facility] Name Value Range Interpretation Code Description Data Source(s) Body weight Measured 196 lb 196 lb [facility] Body weight Measured 195 lb 195 lb [facility] Body weight Measured 204 lb 204 lb [facility] ID Date Data Source [id number] 07/13/2019 07:41:17 PM [facility] Name Value Range Interpretation Code Description Data Source(s) Body weight Measured 204 lb 204 lb [facility] Patient Treatment Plan of Care Planned Activity Planned Date Details Description Data Source (s) OLANZapine 20 mg Tablet [facility] OLANZapine 10 mg Tablet [facility] loratadine 10 mg Tablet [facility] OLANZapine 5 mg Tablet [facility] OLANZapine 20 mg Tablet [facility] nalOXone (Narcan) 4 [facility] Center spray,non-aerosol, Ordered By: SRINIVASA Prestonirections: 1 puff nasal every two hours PRN substance misuse Clonazepam 1 MG Oral Tablet [facility] Omeprazole 20 MG Delayed [facility] Release Oral Capsule Center oxcarbazepine 600 MG Oral Sa int [facility] Tablet Center gabapentin 400 MG Oral [facility] Folic Acid 1 MG Oral Tablet [facility]
[2019-11-09 19:19] VITALS: BMI 23.1
--- NOTE | 2019-11-09 20:23 | HP ---
CIWA Score Nausea/Vomitin (vomiting x 5) Muscle Tremors: 4-Moderate,w/Arms Extend Anxiety: 3 Agitation: 3 Paroxysmal Sweats: 2 Orientation: 0-Oriented Tacttile Disturbances: 0-None Auditory Disturbances: 0-None Visual Disturbances: 0-None Headache: 0-None Present CIWA-Ar Total Score: 17 - Admission Criteria OASAS Guidelines: Admission for Medically Managed Detox: Requires at least one of the followin. CIWA greater than 12 2. Seizures within the past 24 hours 3. Delirium tremens within the past 24 hours 4. Hallucinations within the past 24 hours 5. Acute intervention needed for co occurring medical disorder 6. Acute intervention needed for co occurring psychiatric disorder 7. Severe withdrawal that cannot be handled at a lower level of care (continued vomiting, continued diarrhea, abnormal vital signs) requiring intravenous medication and/or fluids 8. Admitting History and Physical - Advance Directives Advance Directives: Yes: Living Will, Health Care Proxy - Smoking History Smoking history: Current every day smoker Have you smoked in the past 12 months: Yes Aproximately how many cigarettes per day: [address] [facility] Chief Complaint: Alcohol withdrawal symptoms Allergies/Adverse Reactions: Allergies Allergy/AdvReac Type Severity Reaction Status Date / Time No Known Allergies Allergy Verified 11/09/19 20:00 History of Present Illness: 49 years old male with a long history of alcohol dependence is seeking admission to detox. His first visit was on 10/12/2019 and he was sent to ER for suicidal ideation. His last detox was at [facility]. He drinks 10 x 24oz. beer daily. He has medical history of Cisneros's Esophagus, GERD, psych. history of Bipolar 2 disorder, depression and anxiety. He denies suicidal ideation at this time. He is unemployed, lives with his and denies any legal issues. He reports [employer], blackouts and denies alcohol related seizure. Exam Limitations: Intoxication - Ebola screening Have you traveled outside of the country in the last 21 days: No Have you had contact with anyone from an Ebola affected area: No Have you been sick,other than usual withdrawal symptoms: No Do you have a fever: No - Review of Systems Constitutional: Chills, Loss of Appetite, Malaise, Night Sweats, Changes in sleep EENT: reports: No Symptoms Reported Respiratory: reports: No Symptoms reported Cardiac: reports: No Symptoms Reported GI: reports: Diarrhea (x 2), Nausea, Poor Appetite, Poor Fluid Intake, Abdominal cramping : reports: No Symptoms Reported Musculoskeletal: reports: No Symptoms Reported Integumentary: reports: Dryness, Flushing Neuro: reports: Headache, Tremors Endocrine: reports: No Symptoms Reported Hematology: reports: No Symptoms Reported Psychiatric: reports: Orientated x3, Anxious, Depressed Other Systems: Reviewed and Negative Patient History - Patient Medical History Hx Anemia: No Hx Asthma: No Hx Chronic Obstructive Pulmonary Disease (COPD): No Hx Cancer: No Hx Cardiac Disorders: No Hx Congestive Heart Failure: No Hx Hypertension: No Hx Hypercholesterolemia: No Hx Pacemaker: No HX Cerebrovascular Accident: No Hx Seizures: No Hx Diabetes: No Hx Gastrointestinal Disorders: Yes (GERD, Cisneros's Esophagus) Hx Liver Disease: No Hx Genitourinary Disorders: No Hx Sexually Transmitted Disorders: No Hx Renal Disease (ESRD): No Hx Thyroid Disease: No Hx Human Immunodeficiency Virus (HIV): No (Negative 2017) Hx Hepatitis C: No Hx Depression: Yes Hx Suicide Attempt: No (Denies suicidal ideation at this time) Hx Bipolar Disorder: Yes Hx Schizophrenia: No - Patient Surgical History Past Surgical History: No Hx Neurologic Surgery: No Hx Cataract Extraction: No Hx Cardiac Surgery: No Hx Lung Surgery: No Hx Abdominal Surgery: No Hx Appendectomy: No Hx Cholecystectomy: No Hx Genitourinary Surgery: No Hx Orthopedic Surgery: No Anesthesia Reaction: No - PPD History Previous Implant?: Yes Documented Results: Negative w/o proof Implanted On Prior [facility] Admission?: No PPD to be Administered?: Yes - Reproductive History Patient is a Female of Child Bearing Age (11 -55 yrs old): No (Male) Patient : No - Smoking Cessation Smoking history: Current every day smoker Have you smoked in the past 12 months: Yes Aproximately how many cigarettes per day: 10 Hx Chewing Tobacco Use: No Initiated information on smoking cessation: Yes 'Breaking Loose' booklet given: 11/09/19 - Substance & Tx. History Hx Alcohol Use: Yes Hx Substance Use: Yes Substance Use Type: Cocaine Hx Substance Use Treatment: Yes ([facility]) - Substances abused Alcohol Substance route: Oral Frequency: Daily Amount used: 10 x 24oz. beer Age of first use: 18 Date of last use: 11/09/19 Admission Physical Exam [facility] - Vital Signs Vital Signs: Vital Signs - 24 hr 11/09/19 19:18 Temperature 98.3 F Pulse Rate 115 H Respiratory 18 Rate Blood Pressure 117/74 - Physical General Appearance: Yes: Moderate Distress, Intoxicated, Tremorous, Sweating HEENTM: Yes: Within Normal Limits Respiratory: Yes: Within Normal Limits, Lungs Clear, Normal Breath Sounds, No Respiratory Distress Neck: Yes: Within Normal Limits Breast: Yes: Breast Exam Deferred Cardiology: Yes: Tachycardia Abdominal: Yes: Normal Bowel Sounds, Soft Genitourinary: Yes: Within Normal Limits Back: Yes: Normal Inspection Musculoskeletal: Yes: Back pain Extremities: Yes: Tremors Neurological: Yes: Within Normal Limits Integumentary: Yes: Within Normal Limits Lymphatic: Yes: Within Normal Limits - Diagnostic (1) Opioid dependence with withdrawal Current Visit: Yes Status: Acute (2) GERD (gastroesophageal reflux disease) Current Visit: Yes Status: Chronic Qualifiers: Esophagitis presence: esophagitis presence not specified Qualified Code(s): K21.9 - Gastro-esophageal reflux disease without esophagitis (3) Barretts esophagus Current Visit: Yes Status: Chronic (4) Bipolar 2 disorder Current Visit: Yes Status: Chronic (5) Depression Current Visit: Yes Status: Chronic Qualifiers: Depression Type: unspecified Qualified Code(s): F32.9 - Major depressive disorder, single episode, unspecified (6) Cocaine dependence Current Visit: Yes Status: Chronic (7) Anxiety Current Visit: Yes Status: Chronic Cleared for Admission [facility] - Detox or Rehab [facility] Level of Care: Medically Managed Detox Regimen/Protocol: Librium Claeared for Rehab Admission: No Breathalyzer - Breathalyzer Breathalyzer: 0.211 Urine Drug Screen - Test Device Lot number: [id number] Expiration date: 05/19/21 - Control Is test valid?: Yes - Results Drug screen NEGATIVE: No Urine drug screen results: TEE-Cocaine, BZO-Benzodiazepines Inpatient Rehab Admission - Rehab Decision to Admit Inpatient rehab admission?: No
[2019-11-09] MEDS ORDERED: chlordiazePOXIDE HCL 25 MG CAPSULE PO PRN (20:46)
[2019-11-09] MEDS ORDERED: NICOTINE POLACRILEX 2 MG GUM BUC PRN (20:46)
[2019-11-09] MEDS ORDERED: MAGNESIUM HYDROX 2400MG/30ML ORAL SUSPENSION 30 ML CUP PO PRN (20:46)
[2019-11-09] MEDS ORDERED: MAG HYDROX/AL HYDROX/SIMETH 30 ML UNIT-DOSE CUP PO PRN (20:46)
[2019-11-09] MEDS ORDERED: ONDANSETRON *ODT* 4 MG TABLET SL PRN (20:46)
[2019-11-09] MEDS ORDERED: MAGNESIUM CITRATE 300 ML BOTTLE PO PRN (20:46)
[2019-11-09] MEDS ORDERED: MENTHOL/PHENOL 1 EACH UD MM PRN (20:46)
[2019-11-09] MEDS ORDERED: ACETAMINOPHEN 325 MG TABLET (FP) PO PRN (20:46)
[2019-11-09] MEDS ORDERED: BISMUTH SUBSALICYLATE 524 MG/30 ML UD PO PRN (20:46)
--- OUTSIDE RECORDS SUMMARY | 2019-11-09 21:18 | XMS ---
:1970 Author Organization [facility] Care Team Providers Name Role Phone [...] is protected by Article 27-F of the [facility] Public Health law. If you continue you may haveaccess to information: Regarding HIV / AIDS; Provided by facilities licensed or operated by the [facility] Office of Mental Health; or Provided by the [facility] Office for People With Developmental Disabilities. If such information is present, then the following [facility] mandated warning applies: This information has been [...] law may result in a fine or halfway sentence or both. A general authorization for the release of medical or other information is NOT sufficient authorization for further disclosure. Encounters Encounter Providers Location Date Indications Data Source(s ) Inpatient Attender: NOEMI [facility]Attender: STAFF ED - 10/15/2019 STAFF 01:00:00 PM EDT PHYSICIANAdmitter: NOEMI FRANKLIN AReferrer: NOEMI FRANKLIN A Patient discharged. Inpatient Attender: AUSTYN [facility] 07[facility]13/2019 [facility]16[facility] ED[facility] - [address] [place] [address] 09:44:00 PM EDT Patient discharged. Outpatient [facility] 07/13/2019 05:26:00 PM EDT - [address] [place] [address] 07:40:00 PM EDT Patient discharged. Inpatient Attender: AUSTYN [facility] 09/23/2018 09:33:00 [facility]2018 [facility] 10:21:00 PM EDT Patient discharged. Outpatient [facility] 09/23/2018 05:57:00 PM EDT - [address] [place] [address] 10:20:00 PM EDT Patient discharged. Medications Medication Brand Start Product Dose Route Administrative Pharmacy [facility] Indications Reaction Description Data Name Date Form [...] e, Capsule, Ordere Ordered By: d [facility]: [facility]: 1 David, capsule MDDire oral three ctions times a day : 1 capsul e oral three times a day Folic Acid foLIC 1 complet Saint 1 MG Oral Acid 1 ed Jacki Tablet mg Medical foLIC Acid Tablet Center 1 mg , Tablet, Ordere Ordered By: d By: [facility]Direction [facility]: 1 tablet David, oral daily MDDire ctions : 1 tablet oral daily Clonazepam clonaz 1 complet Vira t 1 MG Oral ePAM 1 ed Jacki Tablet mg Medical clonazePAM Tablet Center 1 mg , Tablet, Ordere Ordered By: d By: [facility]: 1 tablet David, oral twice MDDire a day ctions : 1 tablet oral twice a day Omeprazole omepra 1 complet Vira t 20 MG zole ed Jacki Delayed 20 mg Medical Release capsul Center Oral e,blas Capsule yed omeprazole releas 20 mg e(DR/Olga capsule,del C), ayed Ordere release(DR/ d By: ANGELIC), Childe Ordered By: vanna [facility] MDDirection MDDire s: 1 ctions capsule : 1 oral daily capsul e oral daily oxcarbazepi OXcarb 1 complet Soham nt ne 600 MG azepin ed Jacki Oral Tablet e 600 Medical OXcarbazepi mg Center ne 600 mg Tablet Tablet, , Ordered By: Shiraz rincon By: Basilio Bustos MDDirection [facility] s: [address] oral twice David, a day MDDire ctions : 1 tablet oral twice a day nalOXone Naloxo 1 complet Narcan Vira t (Narcan) 4 ne ed [facility] mg/actuatio Hydroc Medica l n hlorid Center spray,non-a e 40 erosol, MG/ML Ordered By: Nasal Childebert Table [place] 1 puff nasal every two hours PRN substance misuse OLANZapine complet Saint 5 mg Tablet [facility] OLANZapine complet Saint 20 mg [facility] OLANZapine complet [facility] 10 mg [facility] loratadine complet [facility] 10 mg [facility] OLANZapine complet [facility] 20 mg [facility] Insurance Providers Payer name Policy type Policy ID Covered Covered republican's Policy P serina / Coverage republican ID relationship to Delaney Inf ormation type delaney W [id number] 01 [id number] DEMETRI W [id number] 01 [id number] DEMETRI CARE W [id number] 01 [id number] [place] DEMETRI [id number] SP [id number] 600 HEALTH NON CAP DEMETRI [id number] SP [id number] 600 HEALTH NON CAP SELF PAY [id number] Self [id number] MEDICAID INP [id number] Self [id number] Y REHAB [facility] DEMETRI [id number] Self [id number] CARE SELF PAY 00 Self 00 MEDICAID INP [id number] Self [id number] Y REHAB Problems, Conditions, and Diagnoses Code Display Name Description Problem Type Effective Data Sour ce(s) Dates 67040340 Bipolar disorder Bipolar disorder Complaint [facility] EDT [id number] Tobacco user Tobacco user Complaint 09/23/2018 [facility]00 PM Hospital EDT [id number] Cocaine abuse Cocaine abuse Complaint 09/23/2018 [facility]00 PM Hospital EDT [id number] Alcohol abuse Alcohol abuse Complaint 09/23/2018 [facility] (disorder[facility] 12:00:00 PM Hospital EDT R19.7 Diarrhea, DIARRHEA, Diagnosis 10/15/2019 [facility] unspecified UNSPECIFIED 01:00:[address] EDT K21.9 Gastro-esophageal GASTRO-ESOPHAGEAL Diagnosis 10/15/2019 [facility] reflux disease REFLUX DISEASE 01:00:00 PM Medic al Center without WITHOUT EDT esophagitis ESOPHAGITIS Y90.7 Blood alcohol BLOOD ALCOHOL Diagnosis 10/15/2019 [facility] level of 200-239 LEVEL OF 200-239 01:00:00 PM [facility] [place] mg/100 ml MG/100 ML EDT F10.229 Alcohol ALCOHOL Diagnosis 10/15/2019 [facility] dependence with DEPENDENCE WITH 01:00:00 PM Med ical Center intoxication, INTOXICATION, EDT unspecified UNSPECIFIED E87.1 Hypo-osmolality HYPO-OSMOLALITY Diagnosis 10/15/2019 Vira yris Jacki and hyponatremia AND HYPONATREMIA 01:00:00 PM [facility] EDT F10.239 Alcohol ALCOHOL Diagnosis 10/12/2019 [facility] dependence with DEPENDENCE WITH 11:56:00 PM Med ical Center withdrawal, WITHDRAWAL, EDT unspecified UNSPECIFIED Results ID Date Data Source CHMROUTINECCDA.[id number] 10/15/2019 06:01:[address] [facility] -0400 Name Value Range Interpretation Description Data [...] Data Source Liver 10/14/2019 07:21:[address] [facility] Profile.[id number] Name Value Range Interpretation Description Data Sup [...] s"> (3.5-5.0 G/DL)</content> ID Date Data Source GFR(Creatinine).[id number] 10/14/2019 07:21:[address] [facility] 0-0400 Name Value Range Interpretation Code Description Data Caitlin rce(s) Supporting Document(s ) UNK > 60 <content [facility] styleCode="Bold"> Medical Cent er EGFR </content>110 GFR<content styleCode="Italic s"> (> 60 GFR)</content> ID Date Data Source CHMROUTINECCDA.[id number] 10/14/2019 07:21:[address] [facility] -0400 Name Value Range Interpretation Description Data Sup porting Code Source(s) Document(s ) UNK 2.3-3.5 <content [facility] styleCode="Bold Medical ">Globulin Center </content>3.2 G/DL<content styleCode="Ital ics"> (2.3-3.5 G/DL)</content> Protein 6.3-8.2 <content [facility] [Mass/volum styleCode="Bold Medical e] in Serum ">Total Protein Center or Plasma </content>6.7 G/DL<content styleCode="Ital ics"> (6.3-8.2 G/DL)</content> UNK >= 1.0 <content [facility] styleCode="Bold Medical ">AG Ratio Center </content>1.1 <content styleCode="Ital ics"> (>= 1.0 )</content> ID Date Data Source [facility].[id number] 10/14/2019 07:21:00 AM EDT [facility] Name Value Range Interpretation Description Data Sup porting Code Source(s) Document(s ) Sodium 137-145 Below low <content Saint [Moles/volume] in normal styleCode="Bold"> [facility] Serum or Plasma Sodium Medical </content>133 Center MEQ/L L<content styleCode="Italic s"> (137-145 MEQ/L)</content> Potassium 3.5-5.3 <content Saint [Moles/volume] in styleCode="Bold"> [facility] Serum or Plasma Potassium Medical </content>4.0 Center MEQ/L<content styleCode="Italic s"> (3.5-5.3 MEQ/L)</content> UNK 9-20 Below low <content Saint normal styleCode="Bold"> Jacki BUN </content>7 Medical MG/DL L<content Center styleCode="Italic s"> (9-20 MG/DL)</content> Creatinine 0.5-1.3 <content [facility] [Mass/volume] in styleCode="Bold"> Mac hs Serum or Plasma Creatinine Medical </content>0.8 Center MG/DL<content styleCode="Italic s"> (0.5-1.3 MG/DL)</content> Chloride 98-107 <content Saint [Moles/volume] in styleCode="Bold"> [facility] Serum or Plasma Chloride Medical </content>104 Center [...] s"> (3.5-5.0 G/DL)</content> ID Date Data Source Urinalysis.[id number] 10/13/2019 01:50:00 AM EDT [facility] 0 Name Value Range Interpretation Description Data Sup porting Code Source(s) Document(s ) UNK CLEAR <content Saint styleCode="Fred Trivedis d">Urine Medical Clarity Center </content>MARYLU R <content styleCode="Abiola lics"> (CLEAR )</content> UNK NEGATIVE <content [facility]Code[facility]">Urine Medical Bilirubin Center </content>NEGA TIVE <content [...] by Test d">Urine Medical strip Specific Center [place] </content><= 1.005 L<content styleCode="Abiola lics"> (1.015-1.025 )</content> [...] Data Source Liver 10/13/2019 01:50:[address] [facility] Profile.[id number] Name Value Range Interpretation Description Data Sup [...] (0.2-1.3 MG/DL)</content> UNK 0.0-0.3 <content Saint styleCode="Bold"> [facility] Bilirubin, Direct Medical </content>< 0.2 Center MG/DL<content styleCode="Italic s"> (0.0-0.3 MG/DL)</content> Albumin 3.5-5.0 <content Saint [Mass/volume] in styleCode="Bold"> Mac hs Serum or Plasma Albumin Medical </content>4.4 Center G/DL<content styleCode="Italic s"> (3.5-5.0 G/DL)</content> ID Date Data Source HematologyRou.[id number] 10/13/2019 01:50:00 AM EDT [facility] 0400 Name Value Range Interpretation Description Data Sup porting Code Source(s) Document(s ) Leukocytes 4.4-11.0 <content Saint [#/volume] in styleCode="Bold [facility] Blood by ">White Blood Medical [...] (0.0 KCUMM)</content > ID Date Data Source GFR(Creatinine).[id number] 10/13/2019 01:50:[address] [facility] 0-0400 Name Value Range Interpretation Code Description Data Caitlin rce(s) Supporting Document(s ) UNK > 60 <content [facility] Jacki styleCode="Bold"> Medical Cent er EGFR </content>110 GFR<content styleCode="Italic s"> (> 60 GFR)</content> ID Date Data Source CHMROUTINECCDA.[id number] 10/13/2019 01:50:[address] [facility] -0400 Name Value Range Interpretation Description Data Sup porting Code Source(s) Document(s ) Cannabinoids <content Saint [Presence] in styleCode="Fred Jacki Urine by Screen d">Cannabinoid Medical method >50 ng/mL s Center </content>NEGA TIVE NG/ML (Reference Range: not available)<br/ > ID Date Data Source BMP.[id number] 10/13/2019 01:50:00 AM EDT [facility] Name Value Range Interpretation [...] 3.5-5.3 <content Saint [Moles/volume] in styleCode="Bold"> [facility] Serum or Plasma Potassium Medical </content>3.5 Center MEQ/L<content styleCode="Italic s"> (3.5-5.3 MEQ/L)</content> Sodium 137-145 <content Saint [Moles/volume] in styleCode="Bold"> [facility] Serum or Plasma Sodium Medical </content>141 Center [...] s"> (3.5-5.0 G/DL)</content> ID Date Data Source [id number] 10/13/2019 12:00:00 AM EDT [facility] Name Value Range Interpretation Code Description Data Caitlin rce(s) Supporting Document(s ) 2019-nCoV [facility] RNA XXX NAVID+probe- Imp This lab was ordered by [facility] and reported by [employer] [facility]. ID Date Data Source [id number] 09/27/2019 07:00:00 PM EDT [facility] Name Value Range Interpretation Description Data Sup porting Code Source(s) Document(s ) 2019 Novel [facility] Coronavirus RNA Interpretation Unspecified Specimen Qualitative NAVID Probe Detection This lab was ordered by [facility]-9250 Interface and reported by [facility]. ID Date Data Source [id number] 2019 07:13:00 PM EDT [facility] Name Value Range Interpretation Description Data Sup porting Code Source(s) Document(s ) SARS [facility] Coronavirus 2 RNA Presence Respiratory Specimen NAVID Probe Detection This lab was ordered by [facility] and reported by [facility]. ID Date Data Source [id number] 08/30/2019 04:49:00 PM EDT [facility] Name Value Range Interpretation Description Data Sup porting Code Source(s) Document(s ) SARS [facility] Coronavirus 2 RNA Presence Respiratory Specimen NAVID Probe Detection This lab was ordered by [facility] and reported by [facility]. ID Date Data Source [id number] 07/05/2019 01:57:00 PM EDT [facility] Name Value Range Interpretation Description Data Sup porting Code Source(s) Document(s ) COV2N [facility] NASOPHARYNGEAL Reportable This lab was ordered by [facility] and reported by [facility]. ID Date Data Source [id number] 06/17/2019 11:41:00 AM EDT [facility] Name Value Range Interpretation Description Data Sup porting Code Source(s) Document(s ) SARS [facility] Coronavirus 2 RNA Presence Respiratory Specimen NAVID Probe Detection This lab was ordered by [facility] and reported by [facility]. Procedure Social History Code Duration Value Status Description Data Source(s ) Smoking 10/13/2019 12:33:00 Daily Smoker completed Daily Smoker S [facility] EDT Center Smoking 10/13/2019 07:22:00 Daily Smoker completed Daily Smoker S [facility] EDT Center Smoking 10/13/2019 02:36:00 Daily Smoker completed Daily Smoker S [facility] EDT Center Smoking 10/13/2019 12:06:00 Daily Smoker completed Daily Smoker S [facility] EDT Center Smoking 10/13/2019 12:01:00 Daily Smoker completed Daily Smoker S [facility] EDT Center Vital Signs ID Date Data Source UNK Name Value Range Interpretation Code Description Data Source(s) Body temperature 36.106368 Shira 36.746464 Shira [facility] Respiratory rate 18 /min 18 /min [facility] Heart rate 72 /min 72 /min [facility] Diastolic blood 48 mm[Hg] 48 mm[Hg] [facility] Systolic blood 90 mm[Hg] 90 mm[Hg] [facility] Body temperature 36.418165 Shira 36.219911 Shira [facility] Respiratory rate 20 /min 20 /min [facility] Heart rate 76 /min 76 /min [facility] Diastolic blood 55 mm[Hg] 55 mm[Hg] [facility] Systolic blood 107 mm[Hg] 107 mm[Hg] [facility] Body temperature 36.868975 Shira 36.958208 Shira [facility] Respiratory rate 18 /min 18 /min [facility] Heart rate 62 /min 62 /min [facility] Diastolic blood 53 mm[Hg] 53 mm[Hg] [facility] Systolic blood 97 mm[Hg] 97 mm[Hg] [facility] Body temperature 36.044784 Shira 36.295762 [address]ira [facility] Respiratory rate 20 /min 20 /min [facility] Heart rate 80 /min 80 /min [facility] Diastolic blood 70 mm[Hg] 70 mm[Hg] [facility] Systolic blood 120 mm[Hg] 120 mm[Hg] [facility] Body temperature 37.496446 [address] 37.3401[address] [facility] Respiratory rate 18 /min 18 /min [facility] Heart rate 79 /min 79 /min [facility] Diastolic blood 67 mm[Hg] 67 mm[Hg] [facility] Systolic blood 110 mm[Hg] 110 mm[Hg] [facility] Body weight 79.827959 kg 79.968342 kg [facility] Measured [facility] Body height 182.916228 cm 182.183962 cm [facility] Body mass index 23.68 kg/m2 23.68 kg/m2 [facility] (BMI) [Ratio] Medical Center Body height 182.228989 cm 182.087714 cm [facility] Body temperature 37.236799 Shira 37.184268 Shira [facility] Respiratory rate 20 /min 20 /min [facility] Heart rate 92 /min 92 /min [facility] Diastolic blood 64 mm[Hg] 64 mm[Hg] [facility] Systolic blood 105 mm[Hg] 105 mm[Hg] [facility] Body temperature 36.847938 Shira 36.279412 [address]ira [facility] Respiratory rate 18 /min 18 /min [facility] Heart rate 83 /min 83 /min [facility] Diastolic blood 72 mm[Hg] 72 mm[Hg] [facility] Systolic blood 115 mm[Hg] 115 mm[Hg] [facility] Oxygen 99 % 99 % [facility] saturation in Medical Arterial blood Center by Pulse oximetry Body temperature 37.310272 Shira 37.714513 Shira [facility] Respiratory rate 18 /min 18 /min [facility] Heart rate 96 /min 96 /min [facility] Diastolic blood 72 mm[Hg] 72 mm[Hg] [facility] Systolic blood 106 mm[Hg] 106 mm[Hg] [facility] Oxygen 97 % 97 % [facility] saturation in Medical Arterial blood Center by Pulse oximetry Body temperature 37.330995 Shira 37.672401 Shira [facility] Respiratory rate 17 /min 17 /min [facility] Heart rate 95 /min 95 /min [facility] Diastolic blood 70 mm[Hg] 70 mm[Hg] [facility] Systolic blood 104 mm[Hg] 104 mm[Hg] [facility] Medical Center Oxygen 95 % 95 % [facility] saturation in Medical Arterial blood Center by Pulse oximetry Body temperature 37.133242 Shira 37.178834 [address]ira [facility] Respiratory rate 17 /min 17 /min [facility] Medical [place] Heart rate 97 /min 97 /min [facility] Diastolic blood 70 mm[Hg] 70 mm[Hg] [facility] pressure Medical Center Systolic blood 104 mm[Hg] 104 mm[Hg] [facility] pressure Medical Center Oxygen 98 % 98 % [facility] saturation in Medical Arterial blood Center by Pulse oximetry Oxygen 99 % 99 % [facility] saturation in Medical Arterial blood Center by Pulse oximetry Body weight 196 lbs 196 lbs [facility] Body temperature 97.4 Fahrenheit 97.4 Fahrenh t [facility] Diastolic blood 78 mmHg 78 mmHg [facility] Systolic blood 116 mmHg 116 mmHg [facility] Respiratory rate 18 bpm 18 bpm [facility] Heart rate 97 bpm 97 bpm [facility] Body temperature 96.9 Fahrenheit 96.9 Fahrenh t [facility] Diastolic blood 74 mmHg 74 mmHg [facility] Systolic blood 106 mmHg 106 mmHg [facility] Respiratory rate 18 bpm 18 bpm [facility] Heart rate 87 bpm 87 bpm [facility] Body temperature 97.4 Fahrenheit 97.4 Fahrenh t [facility] Body temperature 97.2 Fahrenheit 97.2 Fahrenh t [facility] Diastolic blood 75 mmHg 75 mmHg [facility] Systolic blood 124 mmHg 124 mmHg [facility] Respiratory rate 18 bpm 18 bpm [facility] Heart rate 96 bpm 96 bpm [facility] Body temperature 96.7 Fahrenheit 96.7 Fahrenh t [facility] Diastolic blood 76 mmHg 76 mmHg [facility] Systolic blood 108 mmHg 108 mmHg [facility] Respiratory rate 18 bpm 18 bpm [facility] Heart rate 96 bpm 96 bpm [facility] Body temperature 96.7 Fahrenheit 96.7 Fahrenh t [facility] Body temperature 96.9 Fahrenheit 96.9 Fahrenh t [facility] Body weight 195 lbs 195 lbs [facility] Diastolic blood 81 mmHg 81 mmHg [facility] Systolic blood 112 mmHg 112 mmHg [facility] Respiratory rate 18 bpm 18 bpm [facility] Heart rate 87 bpm 87 bpm [facility] Body temperature 96.5 Fahrenheit 96.5 Fahrenhei t [facility] Diastolic blood 73 mmHg 73 mmHg [facility] Systolic blood 114 mmHg 114 mmHg [facility] Respiratory rate 18 bpm 18 bpm [facility] Heart rate 87 bpm 87 bpm [facility] Body temperature 97.0 Fahrenheit 97.0 Fahrenhei t [facility] Diastolic blood 77 mmHg 77 mmHg [facility] Systolic blood 116 mmHg 116 mmHg [facility] Respiratory rate 18 bpm 18 bpm [facility] Heart rate 84 bpm 84 bpm [facility] Body temperature 97.1 Fahrenheit 97.1 Fahrenhei t [facility] Diastolic blood 75 mmHg 75 mmHg [facility] Systolic blood 112 mmHg 112 mmHg [facility] Respiratory rate 18 bpm 18 bpm [facility] Heart rate 80 bpm 80 bpm [facility] Body temperature 97.1 Fahrenheit 97.1 Fahrenhei t [facility] Diastolic blood 78 mmHg 78 mmHg [facility] Systolic blood 119 mmHg 119 mmHg [facility] Respiratory rate 18 bpm 18 bpm [facility] Heart rate 82 bpm 82 bpm [facility] Body temperature 97.2 Fahrenheit 97.2 Fahrenhei t [facility] Diastolic blood 79 mmHg 79 mmHg [facility] Systolic blood 110 mmHg 110 mmHg [facility] Respiratory rate 18 bpm 18 bpm [facility] Heart rate 91 bpm 91 bpm [facility] Body temperature 97.2 Fahrenheit 97.2 Fahrenhei t [facility] Diastolic blood 64 mmHg 64 mmHg [facility] Systolic blood 117 mmHg 117 mmHg [facility] Heart rate 88 bpm 88 bpm [facility] Body temperature 96.7 Fahrenheit 96.7 Fahrenhei t [facility] Diastolic blood 75 mmHg 75 mmHg [facility] Systolic blood 114 mmHg 114 mmHg [facility] Respiratory rate 18 bpm 18 bpm [facility] Heart rate 72 bpm 72 bpm [facility] Body weight 204 lbs 204 lbs [facility] Diastolic blood 80 mmHg 80 mmHg [facility] Systolic blood 120 mmHg 120 mmHg [facility] Respiratory rate 18 bpm 18 bpm [facility] Heart rate 70 bpm 70 bpm [facility] Diastolic blood 83 mmHg 83 mmHg [facility] Systolic blood 118 mmHg 118 mmHg [facility] Respiratory rate 18 bpm 18 bpm [facility] Heart rate 84 bpm 84 bpm [facility] Body temperature 96.4 Fahrenheit 96.4 Fahrenhei t [facility] Diastolic blood 82 mmHg 82 mmHg [facility] Systolic blood 114 mmHg 114 mmHg [facility] Respiratory rate 18 bpm 18 bpm [facility] Heart rate 89 bpm 89 bpm [facility] Body weight 206 lbs 206 lbs [facility] Diastolic blood 70 mmHg 70 mmHg [facility] Systolic blood 100 mmHg 100 mmHg [facility] Respiratory rate 18 bpm 18 bpm [facility] Heart rate 93 bpm 93 bpm [facility] Body temperature 97.8 Fahrenheit 97.8 Fahrenhei t [facility] Diastolic blood 81 mmHg 81 mmHg [facility] Systolic blood 112 mmHg 112 mmHg [facility] Respiratory rate 18 bpm 18 bpm [facility] Heart rate 88 bpm 88 bpm [facility] Body temperature 96.0 Fahrenheit 96.0 [facility] Diastolic blood 83 mmHg 83 mmHg [facility] Systolic blood 112 mmHg 112 mmHg [facility] Respiratory rate 18 bpm 18 bpm [facility] Heart rate 83 bpm 83 bpm [facility] Body temperature 96.1 Fahrenheit 96.1 [facility] Diastolic blood 76 mmHg 76 mmHg [facility] Systolic blood 120 mmHg 120 mmHg [facility] Respiratory rate 16 bpm 16 bpm [facility] Heart rate 91 bpm 91 bpm [facility] Body temperature 96.6 Fahrenheit 96.6 [facility] Diastolic blood 83 mmHg 83 mmHg [facility] Systolic blood 122 mmHg 122 mmHg [facility] Respiratory rate 18 bpm 18 bpm [facility] Heart rate 109 bpm 109 bpm [facility] Diastolic blood 86 mmHg 86 mmHg [facility] Systolic blood 118 mmHg 118 mmHg [facility] Respiratory rate 18 bpm 18 bpm [facility] Heart rate 90 bpm 90 bpm [facility] Body temperature 96.3 Fahrenheit 96.3 [facility] Diastolic blood 95 mmHg 95 mmHg [facility] Systolic blood 126 mmHg 126 mmHg [facility] Respiratory rate 18 bpm 18 bpm [facility] Heart rate 107 bpm 107 bpm [facility] Body weight 206 lbs 206 lbs [facility] Diastolic blood 77 mmHg 77 mmHg [facility] Systolic blood 110 mmHg 110 mmHg [facility] Respiratory rate 18 bpm 18 bpm [facility] Heart rate 86 bpm 86 bpm [facility] Diastolic blood 87 mmHg 87 mmHg [facility] Systolic blood 121 mmHg 121 mmHg [facility] Respiratory rate 18 bpm 18 bpm [facility] Heart rate 107 bpm 107 bpm [facility] Body temperature 97.4 Fahrenheit 97.4 [facility] Diastolic blood 79 mmHg 79 mmHg [facility] Systolic blood 111 mmHg 111 mmHg [facility] Respiratory rate 16 bpm 16 bpm [facility] Heart rate 89 bpm 89 bpm [facility] Body temperature 97.1 Fahrenheit 97.1 [facility] Diastolic blood 73 mmHg 73 mmHg [facility] Systolic blood 115 mmHg 115 mmHg [facility] Respiratory rate 18 bpm 18 bpm [facility] Heart rate 104 bpm 104 bpm [facility] Body temperature 97.4 Fahrenheit 97.4 [facility] ID Date Data Source [id number] 07/26/2019 09:21:32 AM T [facility] Name Value Range Interpretation Code Description Data Source(s) Body weight Measured 196 lb 196 lb [facility] Body weight Measured 195 lb 195 lb [facility] Body weight Measured 204 lb 204 lb [facility] ID Date Data Source [id number] 07/13/2019 07:41:17 PM [facility] Name Value Range Interpretation Code Description Data Source(s) Body weight Measured 204 lb 204 lb [facility] Patient Treatment Plan of Care Planned Activity Planned Date Details Description Data Source (s) OLANZapine 20 mg Tablet [facility] OLANZapine 10 mg Tablet [facility] loratadine 10 mg Tablet [facility] OLANZapine [address] [facility] OLANZapine 20 mg Tablet [facility] nalOXone (Narcan) 4 [facility]/actuation Center spray,non-aerosol, Ordered By: SRINIVASA Prestonirections: 1 puff nasal every two hours PRN substance misuse Clonazepam [address] [facility] Omeprazole 20 MG Delayed [facility] Release Oral [facility] oxcarbazepine 600 MG Oral Sa int [facility] Tablet Center gabapentin 400 MG Oral [facility] Folic Acid [address] [facility]
[2019-11-09] MEDS: METHOCARBAMOL 500 MG TABLET PO PRN (22:05)
[2019-11-09] MEDS: PANTOPRAZOLE 20 MG TABLET PO SCH (22:05)
[2019-11-09] MEDS: hydrOXYzine PAMOATE 25 MG CAPSULE (FP) PO PRN (22:05)
[2019-11-09] MEDS: chlordiazePOXIDE HCL 25 MG CAPSULE PO SCH (22:05)
[2019-11-09] MEDS: THIAMINE HCL 100 MG TABLET (FP) PO SCH (22:05)
[2019-11-09] MEDS: MELATONIN 5 MG TABLETS PO SCH (22:06)
[2019-11-10] MEDS: chlordiazePOXIDE HCL 25 MG CAPSULE PO SCH ×4 (06:27→22:29)
[2019-11-10] MEDS: IBUPROFEN 400 MG TABLET (FP) PO PRN (08:41)
--- NOTE | 2019-11-10 10:14 | EKG ---
Test Reason : Blood Pressure : / mmHG Vent. Rate : 089 BPM Atrial Rate : 089 BPM P-R Int : 170 ms QRS Dur : 092 ms QT Int : 364 ms P-R-T Axes : 071 063 070 degrees QTc Int : 442 ms NORMAL SINUS RHYTHM NORMAL ECG NO PREVIOUS ECGS AVAILABLE Confirmed by MD Leno, Ron ([id number]) on 11/10/2019 10:14:08 AM Referred By: FELIPE METZGER Confirmed By:Ron Burr MD
[2019-11-10 10:51] LABS: HEMATOCRIT 43.3 % (35.4-49); HEMOGLOBIN 14.3 GM/dL (11.7-16.9); MCH 31.8 pg (25.7-33.7); MEAN CELL VOLUME 96.3 fl (80-96); MEAN PLT VOLUME 8.4 fl (7.5-11.1); PLATELET COUNT 277 K/MM3 (134-434); RBC 4.49 M/mm3 (4.00-5.60); RDW 14.6 % (11.9-15.9); WHITE BLOOD COUNT 4.5 K/mm3 (4.0-10.0)
[2019-11-10 11:02] LABS: POTASSIUM 3.9 mmol/L (3.5-5.1)
[2019-11-10] MEDS: hydrOXYzine PAMOATE 25 MG CAPSULE (FP) PO PRN (11:15)
[2019-11-10] MEDS: NICOTINE 21 MG/24 HOURS TOPICAL PATCH TD SCH (11:15)
[2019-11-10] MEDS: PANTOPRAZOLE 20 MG TABLET PO SCH ×2 (11:15→22:30)
[2019-11-10] MEDS: PRENATAL VITAMINS W/ FOLIC ACID TABLET (FP) PO SCH (11:15)
[2019-11-10] MEDS: METHOCARBAMOL 500 MG TABLET PO PRN (11:15)
[2019-11-10 11:22] LABS: ALBUMIN 3.3 g/dl (3.4-5.0); BILIRUBIN,TOTAL 0.5 mg/dL (0.2-1); BLOOD UREA NITROGEN 5.2 mg/dL (7-18); CREATININE 0.8 mg/dL (0.55-1.3)
--- NOTE | 2019-11-10 12:06 | CONSULT ---
[facility] Psychiatric Consult - Data Date of interview: 11/10/19 Admission source: Self-referred Identifying data: Mr Veliz is a 49 years old male, father of 4 years old daughter, unemployed, living with seeking detox treatment for alcohol and cocaine Substance Abuse History: Reports history of alcohol and cocaine use. Refer to addiction counselor's summary for further information Medical History: Significant for fernandez's esophagus and GERD. Smokes cigarettes 1 ppd Psychiatric History: This is patient's first admissio to this facility. He was somewhat hostile and irritable during the interview. He reports that he was diagnosed with Bipolar II Disorder approximately 10 years ago and started on psychotropic medications. He currently sees a private psychiatrist in [facility] and he is prescribed Gabapentin 400 mg/tid, Zyprexa 20 mg/hs and Klonopin 1 mg. Reports multiple previous psychiatric hospitalizations at [facility]. Denies previous suicidal attempt. At present, denies experiencing psychotic, manic or depressive symptoms, S/H ideations. However, he is very irritable, reports feeling anxious and sleeping poorly Physical/Sexual Abuse/Trauma History: Not addressed due to patient's attitude Mental Status Exam - Mental Status Exam Alert and Oriented to: Time, Place, Person Cognitive Function: Fair Patient Appearance: Disheveled Mood: Anxious, Irritable Affect: Appropriate Patient Behavior: Cooperative (superficially) Speech Pattern: Clear Voice Loudness: Normal Thought Process: Intact, Goal Oriented Suicidal Ideation: Denies Homicidal Ideation: Denies Insight/Judgement: Poor Sleep: Poorly Appetite: Poor Muscle strength/Tone: Normal Gait/Station: Normal Psychiatric Findings - Problem List ([place] 1, 2,3) (1) Bipolar II disorder Current Visit: Yes Status: Chronic (2) Substance-induced anxiety disorder Current Visit: Yes Status: Acute (3) Substance-induced sleep disorder Current Visit: Yes Status: Acute (4) Alcohol dependence, uncomplicated Current Visit: Yes Status: Acute (5) Cocaine dependence Current Visit: Yes Status: Acute (6) Nicotine dependence Current Visit: Yes Status: Chronic (7) Barretts esophagus Current Visit: Yes Status: Chronic (8) GERD (gastroesophageal reflux disease) Current Visit: Yes Status: Acute - Initial Treatment Plan Initial Treatment Plan: 1) Continue Gabapentin 400 mg po TID and Zyprexa 20 mg po HS. 2) Continue inpatient detoxification
[2019-11-10] MEDS: GABAPENTIN 400 MG CAPSULE PO SCH ×2 (13:22→22:30)
--- NOTE | 2019-11-10 13:31 | PN ---
S CIWA - CIWA Score Nausea/Vomitin-Mild Nausea/No Vomiting Muscle Tremors: 3 Anxiety: 3 Agitation: 3 Paroxysmal Sweats: 3 Orientation: 0-Oriented Tacttile Disturbances: 0-None Auditory Disturbances: 0-None Visual Disturbances: 0-None Headache: 0-None Present CIWA-Ar Total Score: 13 S Progress Note (SOAP) Subjective: shakes sweats body aches chills restless agitation interrupted sleep Objective: 11/10/19 13:30 Vital Signs Temperature 98.4 F 11/10/19 05:13 Pulse Rate 58 L 11/10/19 05:13 Respiratory Rate 11/10/19 05:13 Blood Pressure 107/70 11/10/19 05:13 O2 Sat by Pulse Oximetry (%) 98 11/10/19 05:13 Laboratory Tests 11/09/19 11/10/19 11/10/19 07:00 07:00 07:15 WBC 4.5 RBC 4.49 Hgb 14.3 Hct 43.3 MCV 96.3 H MCH 31.8 MCHC 33.0 RDW 14.6 Plt Count 277 MPV 8.4 Sodium 141 Potassium 3.9 Chloride 107 Carbon Dioxide 25 Anion Gap 9 BUN 5.2 L Creatinine 0.8 Est GFR (CKD-EPI)AfAm 122.43 Est GFR (CKD-EPI)NonAf 105.63 Random Glucose 101 Calcium 9.0 Total Bilirubin 0.5 AST 25 ALT 16 Alkaline Phosphatase 64 Total Protein 7.0 Albumin 3.3 L Syphilis Serology Non-reactive labs noted aaox3 ambulating no acute distress Assessment: 11/10/19 13:31 withdrawals Plan: continue detox increase fluids zofran prn
[2019-11-10] MEDS: MELATONIN 5 MG TABLETS PO SCH (22:30)
[2019-11-10] MEDS: OLANZapine 10 MG TABLET PO SCH (22:30)
[2019-11-10] MEDS: THIAMINE HCL 100 MG TABLET (FP) PO SCH (22:30)
[2019-11-11] MEDS: chlordiazePOXIDE HCL 25 MG CAPSULE PO SCH ×4 (06:11→22:20)
[2019-11-11] MEDS: GABAPENTIN 400 MG CAPSULE PO SCH ×3 (06:11→22:20)
[2019-11-11] MEDS: NICOTINE 21 MG/24 HOURS TOPICAL PATCH TD SCH (10:12)
[2019-11-11] MEDS: PRENATAL VITAMINS W/ FOLIC ACID TABLET (FP) PO SCH (10:12)
[2019-11-11] MEDS: PANTOPRAZOLE 20 MG TABLET PO SCH ×2 (10:12→22:20)
--- NOTE | 2019-11-11 13:09 | PN ---
S CIWA - CIWA Score Nausea/Vomitin-No Nausea/No Vomiting Muscle Tremors: 3 Anxiety: 2 Agitation: 3 Paroxysmal Sweats: 2 Orientation: 0-Oriented Tacttile Disturbances: 0-None Auditory Disturbances: 0-None Visual Disturbances: 0-None Headache: 0-None Present CIWA-Ar Total Score: 10 BHS Progress Note (SOAP) Subjective: sweats shakes body aches restless agitation Objective: 11/11/19 13:08 Vital Signs Temperature 97.5 F L 11/11/19 06:02 Pulse Rate 93 H 11/11/19 06:02 Respiratory Rate 16 11/11/19 06:02 Blood Pressure 104/58 L 11/11/19 06:02 O2 Sat by Pulse Oximetry (%) 94 L 11/11/19 06:02 Laboratory Tests 11/09/19 11/09/19 11/10/19 07:00 20:15 07:00 WBC RBC Hgb Hct MCV MCH MCHC RDW Plt Count MPV Sodium 141 Potassium 3.9 Chloride 107 Carbon Dioxide 25 Anion Gap 9 BUN 5.2 L Creatinine 0.8 Est GFR (CKD-EPI)AfAm 122.43 Est GFR (CKD-EPI)NonAf 105.63 Random Glucose 101 Calcium 9.0 Total Bilirubin 0.5 AST 25 ALT 16 Alkaline Phosphatase 64 Total Protein 7.0 Albumin 3.3 L Syphilis Serology Non-reactive COVID-19 (NAVID) Not detected 11/10/19 07:15 WBC 4.5 RBC 4.49 Hgb 14.3 Hct 43.3 MCV 96.3 H MCH 31.8 MCHC 33.0 RDW 14.6 Plt Count 277 MPV 8.4 Sodium Potassium Chloride Carbon Dioxide Anion Gap BUN Creatinine Est GFR (CKD-EPI)AfAm Est GFR (CKD-EPI)NonAf Random Glucose Calcium Total Bilirubin AST ALT Alkaline Phosphatase Total Protein Albumin Syphilis Serology COVID-19 (NAVID) labs noted aaox3 ambulating no acute distress Assessment: 11/11/19 13:08 withdrawals Plan: continue detox
[2019-11-11] MEDS: MELATONIN 5 MG TABLETS PO SCH (22:20)
[2019-11-11] MEDS: OLANZapine 10 MG TABLET PO SCH (22:20)
[2019-11-11] MEDS: THIAMINE HCL 100 MG TABLET (FP) PO SCH (22:20)
[2019-11-12] MEDS: IBUPROFEN 400 MG TABLET (FP) PO PRN ×2 (01:04→13:57)
[2019-11-12] MEDS: METHOCARBAMOL 500 MG TABLET PO PRN (01:04)
[2019-11-12] MEDS: chlordiazePOXIDE HCL 10 MG CAPSULE PO PRN ×2 (01:04→13:56)
[2019-11-12] MEDS: hydrOXYzine PAMOATE 25 MG CAPSULE (FP) PO PRN (01:46)
[2019-11-12] MEDS: ACETAMINOPHEN 325 MG TABLET (FP) PO PRN (03:18)
[2019-11-12] MEDS: GABAPENTIN 400 MG CAPSULE PO SCH ×3 (05:21→22:11)
[2019-11-12] MEDS: chlordiazePOXIDE HCL 10 MG CAPSULE PO SCH ×4 (05:21→22:12)
[2019-11-12] MEDS: PANTOPRAZOLE 20 MG TABLET PO SCH ×2 (10:34→22:12)
[2019-11-12] MEDS: NICOTINE 21 MG/24 HOURS TOPICAL PATCH TD SCH (10:35)
[2019-11-12] MEDS: PRENATAL VITAMINS W/ FOLIC ACID TABLET (FP) PO SCH (10:35)
--- NOTE | 2019-11-12 13:38 | PN ---
S CIWA - CIWA Score Nausea/Vomitin-No Nausea/No Vomiting Muscle Tremors: 3 Anxiety: 2 Agitation: 2 Paroxysmal Sweats: 2 Orientation: 0-Oriented Tacttile Disturbances: 0-None Auditory Disturbances: 0-None Visual Disturbances: 0-None Headache: 0-None Present CIWA-Ar Total Score: 9 BHS Progress Note (SOAP) Subjective: tired body aches sweats Objective: 11/12/19 13:38 Vital Signs Temperature 97.5 F L 11/12/19 13:15 Pulse Rate 60 11/12/19 13:15 Respiratory Rate 18 11/12/19 13:15 Blood Pressure 94/57 L 11/12/19 13:15 O2 Sat by Pulse Oximetry (%) 95 11/12/19 13:15 Laboratory Tests 11/09/19 11/09/19 11/10/19 07:00 20:15 07:00 WBC RBC Hgb Hct MCV MCH MCHC RDW Plt Count MPV Sodium 141 Potassium 3.9 Chloride 107 Carbon Dioxide 25 Anion Gap 9 BUN 5.2 L Creatinine 0.8 Est GFR (CKD-EPI)AfAm 122.43 Est GFR (CKD-EPI)NonAf 105.63 Random Glucose 101 Calcium 9.0 Total Bilirubin 0.5 AST 25 ALT 16 Alkaline Phosphatase 64 Total Protein 7.0 Albumin 3.3 L Syphilis Serology Non-reactive COVID-19 (NAVID) Not detected 11/10/19 07:15 WBC 4.5 RBC 4.49 Hgb 14.3 Hct 43.3 MCV 96.3 H MCH 31.8 MCHC 33.0 RDW 14.6 Plt Count 277 MPV 8.4 Sodium Potassium Chloride Carbon Dioxide Anion Gap BUN Creatinine Est GFR (CKD-EPI)AfAm Est GFR (CKD-EPI)NonAf Random Glucose Calcium Total Bilirubin AST ALT Alkaline Phosphatase Total Protein Albumin Syphilis Serology COVID-19 (NAVID) labs noted aaox3 ambulating no acute distress Assessment: 11/12/19 13:38 withdrawals Plan: continue detox
[2019-11-12] MEDS ORDERED: MASKS NR ONE (13:54)
[2019-11-12] MEDS: MELATONIN 5 MG TABLETS PO SCH (22:12)
[2019-11-12] MEDS: OLANZapine 10 MG TABLET PO SCH (22:13)
[2019-11-12] MEDS: THIAMINE HCL 100 MG TABLET (FP) PO SCH (22:13)
[2019-11-13] MEDS: METHOCARBAMOL 500 MG TABLET PO PRN (04:01)
[2019-11-13] MEDS: hydrOXYzine PAMOATE 25 MG CAPSULE (FP) PO PRN (04:01)
[2019-11-13] MEDS: chlordiazePOXIDE HCL 10 MG CAPSULE PO SCH ×2 (06:15→17:51)
[2019-11-13] MEDS: GABAPENTIN 400 MG CAPSULE PO SCH ×3 (06:16→22:36)
[2019-11-13] MEDS: NICOTINE 21 MG/24 HOURS TOPICAL PATCH TD SCH (10:32)
[2019-11-13] MEDS: PANTOPRAZOLE 20 MG TABLET PO SCH ×2 (10:32→22:36)
[2019-11-13] MEDS: PRENATAL VITAMINS W/ FOLIC ACID TABLET (FP) PO SCH (10:32)
--- NOTE | 2019-11-13 11:30 | PN ---
[facility] CIWA - CIWA Score Nausea/Vomitin-No Nausea/No Vomiting Muscle Tremors: 1-None Visible, but [place] Anxiety: 1-Mildly Anxious Agitation: 0-Normal Activity Paroxysmal Sweats: No Perspiration Orientation: 0-Oriented Tacttile Disturbances: 0-None Auditory Disturbances: 0-None Visual Disturbances: 0-None Headache: 0-None Present CIWA-Ar Total Score: 2 BHS Progress Note (SOAP) Subjective: interrupted sleep sweats Objective: 11/13/19 11:29 Vital Signs Temperature 96.9 F L 11/13/19 08:40 Pulse Rate 68 11/13/19 08:40 Respiratory Rate 18 11/13/19 08:40 Blood Pressure 101/62 11/13/19 08:40 O2 Sat by Pulse Oximetry (%) 96 11/13/19 08:40 aaox3 lying in bed no acute distress Assessment: 11/13/19 11:29 withdrawal sx Plan: continue detox d/c in am
[2019-11-13] MEDS: ACETAMINOPHEN 325 MG TABLET (FP) PO PRN (22:36)
[2019-11-13] MEDS: OLANZapine 10 MG TABLET PO SCH (22:36)
[2019-11-13] MEDS: THIAMINE HCL 100 MG TABLET (FP) PO SCH (22:37)
[2019-11-13] MEDS: MELATONIN 5 MG TABLETS PO SCH (22:37)
[2019-11-14] MEDS ORDERED: chlordiazePOXIDE HCL 10 MG CAPSULE PO ONE (05:00)
[2019-11-14] MEDS: GABAPENTIN 400 MG CAPSULE PO SCH ×2 (06:56→14:24)
[2019-11-14] MEDS: PANTOPRAZOLE 20 MG TABLET PO SCH (10:41)
[2019-11-14] MEDS: NICOTINE 21 MG/24 HOURS TOPICAL PATCH TD SCH (10:41)
[2019-11-14] MEDS: PRENATAL VITAMINS W/ FOLIC ACID TABLET (FP) PO SCH (10:41)
[2019-11-14 11:44] VITALS: TEMP 98.8
[2019-11-14 13:47] VITALS: BP 102/66; PULSE 87
--- NOTE | 2019-11-14 15:11 | DS ---
[facility] Detox Discharge Summary Admission Date: 11/09/19 Discharge Date: 11/14/19 - History Present History: Alcohol Dependence, Cocaine Dependence, Opioid Dependence Additional Comments: Patient going to [facility] ([facility]) for aftercare. Patient was discharged from detox unit to be taken over to rehab unit in stable medical condition. Pertinent Past History: Depression, GERD, Cisneros's Esophagus, Nicotine Dependence, Bipolar II Disorder. - Physical Exam Results Vital Signs: Vital Signs Temperature 98.8 F 11/14/19 12:29 Pulse Rate 87 11/14/19 12:29 Respiratory Rate 20 11/14/19 12:29 Blood Pressure 102/66 11/14/19 12:29 O2 Sat by Pulse Oximetry (%) 100 11/14/19 12:29 Pertinent Admission Physical Exam Findings: WITHDRAWAL SYMPTOMS. Laboratory Tests 11/09/19 11/09/19 11/10/19 07:00 20:15 07:00 WBC RBC Hgb Hct MCV MCH MCHC RDW Plt Count MPV Sodium 141 Potassium 3.9 Chloride 107 Carbon Dioxide 25 Anion Gap 9 BUN 5.2 L Creatinine 0.8 Est GFR (CKD-EPI)AfAm 122.43 Est GFR (CKD-EPI)NonAf 105.63 Random Glucose 101 Calcium 9.0 Total Bilirubin 0.5 AST 25 ALT 16 Alkaline Phosphatase 64 Total Protein 7.0 Albumin 3.3 L Syphilis Serology Non-reactive COVID-19 (NAVID) Not detected 11/10/19 07:15 WBC 4.5 RBC 4.49 Hgb 14.3 Hct 43.3 MCV 96.3 H MCH 31.8 MCHC 33.0 RDW 14.6 Plt Count 277 MPV 8.4 Sodium Potassium Chloride Carbon Dioxide Anion Gap BUN Creatinine Est GFR (CKD-EPI)AfAm Est GFR (CKD-EPI)NonAf Random Glucose Calcium Total Bilirubin AST ALT Alkaline Phosphatase Total Protein Albumin Syphilis Serology COVID-19 ([facility]) Lab Results noted. - Treatment Hospital Course: Detox Protocol Followed, Detoxed Safely, Responded well, Discharged Condition Good, Rehab Referral Accepted Patient has Accepted a Rehab Referral to: [facility] ([place], [place]) - Medication Discharge Medications: Ambulatory Orders Clonazepam [Klonopin] 1 mg PO DAILY 11/09/19 Gabapentin 400 mg PO TID 11/09/19 Olanzapine [Zyprexa] 20 mg PO DAILY 11/09/19 Omeprazole 20 mg PO BID 11/09/19 - Diagnosis (1) Alcohol dependence, uncomplicated Status: Acute (2) GERD (gastroesophageal reflux disease) Status: Acute Qualifiers: Esophagitis presence: esophagitis presence not specified Qualified Code(s): K21.9 - Gastro-esophageal reflux disease without esophagitis (3) Opioid dependence with withdrawal Status: Acute (4) Substance-induced anxiety disorder Status: Acute (5) Substance-induced sleep disorder Status: Acute (6) Anxiety Status: Chronic (7) Barretts esophagus Status: Chronic Qualifiers: Cisneros's esophagus type: with dysplasia of unspecified degree Qualified Code(s): K22.719 - Cisneros's esophagus with dysplasia, unspecified; K22.71 - Cisneros's esophagus with dysplasia (8) Bipolar II disorder Status: Chronic (9) Cocaine dependence Status: Chronic Qualifiers: Substance use status: uncomplicated Qualified Code(s): F14.20 - Cocaine dependence, uncomplicated (10) Depression Status: Chronic Qualifiers: Depression Type: unspecified Qualified Code(s): F32.9 - Major depressive disorder, single episode, unspecified - AMA Did Patient Leave Against Medical Advice: No
[2019-11-14] MEDS ORDERED: traZODone HCL 50 MG TABLET (FP) ONE (21:29)
[2019-11-14] MEDS ORDERED: GABAPENTIN 400 MG CAPSULE ONE (21:29)
[2019-11-14] MEDS ORDERED: THIAMINE HCL 100 MG TABLET (FP) ONE (21:30)
[2019-11-14] MEDS ORDERED: MELATONIN 5 MG TABLETS ONE (21:30)
[2019-11-14] MEDS ORDERED: PANTOPRAZOLE 20 MG TABLET PO ONE (21:30)
[2019-11-15] MEDS ORDERED: GABAPENTIN 400 MG CAPSULE ONE (03:34)
[2019-11-15] MEDS ORDERED: NICOTINE 21 MG/24 HOURS TOPICAL PATCH ONE (08:30)
[2019-11-15] MEDS ORDERED: PRENATAL VITAMINS W/ FOLIC ACID TABLET (FP) PO ONE (08:31)
== END 2019-11-14 14:18 | disposition other institution (70) | DRG 773 ==
LOC: YASAS 16:20 → Y6N 20:21
PROVIDERS: ADMIT Allergy & Immunology; ATTEND Allergy & Immunology
PROC: HZ2ZZZZ Detoxification Services for Substance Abuse Treatment (ICD-10-PCS; principal; 2019-11-09)
DX: F10.230 Alcohol dependence with withdrawal, uncomplicated (principal); F11.23 Opioid dependence with withdrawal; F14.20 Cocaine dependence, uncomplicated; F17.210 Nicotine dependence, cigarettes, uncomplicated; F31.81 Bipolar II disorder; F19.280 Other psychoactive substance dependence with psychoactive substance-induced anxiety disorder; F19.282 Other psychoactive substance dependence with psychoactive substance-induced sleep disorder; F41.9 Anxiety disorder, unspecified; K21.9 Gastro-esophageal reflux disease without esophagitis; K22.70 Barrett's esophagus without dysplasia; G47.00 Insomnia, unspecified
CPT/HCPCS: 36415; 80053; 85027; 86780; 93005; 93010; U0003

== ENCOUNTER 2019-11-14 14:17 | Inpatient (IN) | payer OTHER ==
--- OUTSIDE RECORDS SUMMARY | 2019-11-14 14:22 | XMS ---
:1970 Author Organization [facility] Care Team Providers Name Role Phone FABIANO ROACH MD Unavailable Unavailable OUSEPH NOEMI A Unavailable Unavailable ED STAFF PHYSICIAN Unavailable Unavailable [...] is protected by Article 27-F of the [place] State Public Health law. If you continue you may haveaccess to information: Regarding HIV / AIDS; Provided by facilities licensed or operated by the [facility] Office of Mental Health; or Provided by the [facility] Office for People With Developmental Disabilities. If such information is present, then the following [facility] mandated warning applies: This information has [...] law may result in a fine or prison sentence or both. A general authorization for the release of medical or other information is NOT sufficient authorization for further disclosure. Encounters Encounter Providers Location Date Indications Data Source(s ) Inpatient Attender: NOEMI H-HAL5 10/12/2019 [facility]ANKLIN 11:56:00 PM EDT [facility] AAttender: STAFF ED - 10/15/2019 STAFF 01:00:00 PM EDT PHYSICIANAdmitter: NOEMI FRANKLIN AReferrer: NOEMI FRANKLIN A Patient discharged. [facility] [address] [place] [address] 09:44:00 PM EDT Patient discharged. Outpatient [facility] 07/13/2019 05:26:00 PM EDT - [address] [place] [address] 07:40:00 PM EDT Patient discharged. Inpatient Attender: [facility] 09/23/2018 09:33:00 [facility]16[facility]2018 [facility] 10:21:00 PM EDT Patient discharged. Outpatient [facility] 09/23/2018 05:57:00 PM EDT - [address] [place] [address] 10:20:00 PM EDT Patient discharged. Medications Medication Brand Start Product Dose Route Administrative Pharm[facility] Indications Reaction Description Data Name Date Form [...] e, Capsule, Ordere [facility]dered By: d [facility] 1 David, capsule MDDire oral three ctions times a day : 1 capsul e oral three times a day Folic Acid foLIC 1 complet Saint 1 MG Oral Acid 1 ed Jacki Tablet mg Medical foLIC Acid Tablet Center 1 mg , Tablet, Ordere Ordered By: d By: [facility]: 1 tablet David, oral daily MDDire ctions : 1 tablet oral daily Clonazepam clonaz 1 complet Vira t 1 MG Oral ePAM 1 ed Jacki Tablet mg Medical clonazePAM Tablet Center 1 mg , Tablet, Ordere Ordered By: d By: Shavon [facility] MDDirection St. s: 1 tablet David, oral twice MDDire a day ctions : 1 tablet oral twice a day Omeprazole omepra 1 complet Vira t 20 MG zole ed Jacki Delayed 20 mg Medical Release capsul Center Oral e,blas Capsule yed omeprazole releas 20 mg e(DR/Olga capsule,del C), ayed Ordere release(DR/ d By: ANGELIC), Childe Ordered By: [facility] MDDirection MDDire s: 1 ctions capsule : 1 oral daily capsul e oral daily oxcarbazepi OXcarb 1 complet Soham nt ne 600 MG azepin ed Jacki Oral Tablet e 600 Medical OXcarbazepi mg Center ne 600 mg Tablet Tablet, , Ordered By: Shiraz rincon By: [facility] Childe MDDirection [facility] s: [address] oral twice David, a day MDDire ctions : 1 tablet oral twice a day nalOXone Naloxo 1 complet Narcan Vira t (Narcan) 4 ne ed [facility] mg/actuatio Hydroc Medica l n hlorid Center spray,non-a e 40 erosol, MG/ML Ordered By: Nasal Childebert [place] [facility]: 1 puff nasal every two hours PRN substance misuse OLANZapine complet Saint 5 mg Tablet [facility] OLANZapine complet Saint 20 mg [facility] OLANZapine complet Saint 10 mg [facility] loratadine complet Saint 10 mg [facility] OLANZapine complet Saint 20 mg [facility] Insurance Providers Payer name Policy type Policy ID Covered Covered green party's Policy P serina / Coverage green party ID relationship to Delaney Inf ormation type delaney DEMETRI [id number] SP [id number] 600 HEALTH NON CAP W [id number] 01 [id number] DEMETRI W [id number] 01 [id number] 600 DEMETRI CARE W [id number] 01 [id number] CA DEMETRI [id number] SP [id number] 600 HEALTH NON CAP SELF PAY [id number] Self [id number] Self [id number] Y REHAB [facility] DEMETRI [id number] Self [id number] CARE SELF PAY 00 Self 00 MEDICAID INP [id number] Self [id number] Y REHAB Problems, Conditions, and Diagnoses Code Display Name Description Problem Type Effective Data Sour ce(s) Dates 25393081 Bipolar disorder Bipolar disorder Complaint [facility] EDT [id number] Tobacco user Tobacco user Complaint 09/23/2018 [facility]00 PM Hospital EDT [id number] Cocaine abuse Cocaine abuse Complaint 09/23/2018 [facility]00 PM Hospital EDT [id number] Alcohol abuse Alcohol abuse Complaint 09/23/2018 [facility] (disorder) 12:00:00 PM Hospital EDT R19.7 Diarrhea, DIARRHEA, Diagnosis 10/15/2019 [facility] unspecified UNSPECIFIED 01:00:[address] EDT K21.9 Gastro-esophageal GASTRO-ESOPHAGEAL Diagnosis 10/15/2019 [facility] reflux disease REFLUX DISEASE 01:00:00 PM Medic al Center without WITHOUT EDT esophagitis ESOPHAGITIS Y90.7 Blood alcohol BLOOD ALCOHOL Diagnosis 10/15/2019 [facility] level of 200-239 LEVEL OF 200-239 01:00:00 PM [facility] mg/100 ml MG/100 ML EDT F10.229 Alcohol ALCOHOL Diagnosis 10/15/2019 [facility] dependence with DEPENDENCE WITH 01:00:00 PM Med ical Center intoxication, INTOXICATION, EDT unspecified UNSPECIFIED E87.1 Hypo-osmolality HYPO-OSMOLALITY Diagnosis 10/15/2019 Vira Echeverria and hyponatremia AND HYPONATREMIA 01:00:00 PM [facility] EDT F10.239 Alcohol ALCOHOL Diagnosis 10/12/2019 [facility] dependence with DEPENDENCE WITH 11:56:00 PM Med ical Center withdrawal, WITHDRAWAL, EDT unspecified UNSPECIFIED Results ID Date Data Source [id number] 11/09/2019 08:15:00 PM EDT [facility] Name Value Range Interpretation Description Data Sup porting Code Source(s) Document(s ) SARS [facility] coronavirus 2 RNA This lab was ordered by [facility] Ac ct Bill Inter and reported by [facility]. ID Date Data Source CHMROUTINECCDA.[id number] 10/15/2019 06:01:00 AM EDT [facility] -0400 Name Value Range Interpretation Description [...] Data Source Liver 10/14/2019 07:21:00 AM EDT [facility] Profile.[id number] Name Value Range Interpretation Description Data Sup [...] s"> (3.5-5.0 G/DL)</content> ID Date Data Source GFR(Creatinine).[id number] 10/14/2019 07:21:00 AM EDT [facility] 0-0400 Name Value Range Interpretation Code Description Data Caitlin rce(s) Supporting Document(s ) UNK > 60 <content Saint Echeverria styleCode="Bold"> Medical Cent er EGFR </content>110 GFR<content styleCode="Italic s"> (> 60 GFR)</content> ID Date Data Source CHMROUTINECCDA.[id number] 10/14/2019 07:21:00 AM EDT [facility] -0400 Name Value Range Interpretation Description Data Sup porting Code Source(s) Document(s ) UNK 2.3-3.5 <content [facility] styleCode="Bold Medical ">Globulin Center </content>3.2 G/DL<content styleCode="Ital ics"> (2.3-3.5 G/DL)</content> Protein 6.3-8.2 <content [facility] [Mass/volum styleCode="Bold Medical e] in Serum ">Total Protein Center or Plasma </content>6.7 G/DL<content styleCode="Ital ics"> (6.3-8.2 G/DL)</content> UNK >= 1.0 <content [facility] styleCode="Bold Medical ">AG Ratio Center </content>1.1 <content styleCode="Ital ics"> (>= 1.0 )</content> ID Date Data Source [facility].[id number] 10/14/2019 07:21:00 AM EDT [facility] Name Value Range Interpretation Description Data Sup porting Code Source(s) Document(s ) Sodium 137-145 Below low <content Saint [Moles/volume] in normal styleCode="Bold"> [facility] Serum or Plasma Sodium Medical </content>133 Center MEQ/L L<content styleCode="Italic s"> (137-145 MEQ/L)</content> Potassium 3.5-5.3 <content Saint [Moles/volume] in styleCode="Bold"> [facility] Serum or Plasma Potassium Medical </content>4.0 Center [...] Robbie phs Serum or Plasma Chloride Medical </content>104 Center [...] s"> (3.5-5.0 G/DL)</content> ID Date Data Source Urinalysis.[id number] 10/13/2019 01:50:00 AM EDT [facility] 0 Name Value Range Interpretation Description Data Sup porting Code Source(s) Document(s ) UNK CLEAR <content Saint styleCode="[facility] d">Urine Medical Clarity Center </content>MARYLU R <content styleCode="Abiola lics"> (CLEAR )</content> UNK NEGATIVE <content Saint styleCode="Fred Jacki d">Urine Medical Bilirubin Center </content>NEGA TIVE <content styleCode="Abiola lics"> (NEGATIVE )</content> Color of Urine YELLOW <content Saint styleCode="Fred Jacki d">Color, Medical Urine Center </content>YELL OW <content styleCode="Abiola lics"> (YELLOW )</content> Glucose NEGATIVE <content Saint [Mass/volume] styleCode="Fred Echeverria in Urine by d">Urine Medical Test strip Glucose Center </content>NEGA TIVE MG/DL<content styleCode="Abiola lics"> (NEGATIVE MG/DL)</conten t> Hemoglobin NEGATIVE <content Saint [Presence] in styleCode="Fred Echeverria Urine by Test d">Urine Blood Medical strip [...] by Test d">Urine Medical strip Specific Center [place] </content><= 1.005 L<content styleCode="Abiola lics"> (1.015-1.025 )</content> Nitrite NEGATIVE <content Saint [Presence] in styleCode="Fred Trivedis Urine by Test d">Urine Medical strip Nitrite Center </content>NEGA TIVE <content styleCode="Abiola lics"> (NEGATIVE )</content> Urobilinogen 0.2-1.0 <content Saint [Units/volume] styleCode="Fred Jacki in Urine by d">Urine Medical Test strip Urobilinogen Center </content>0.2 MG/DL<content styleCode="Abiola lics"> (0.2-1.0 MG/DL)</conten t> Leukocyte NEGATIVE <content Saint esterase styleCode="Fred Jacki [Presence] in d">Urine Medical Urine by Test Leukocyte Center strip </content>NEGA TIVE <content styleCode="Abiola lics"> (NEGATIVE )</content> ID Date Data Source [facility] 10/13/2019 01:50:00 AM EDT [facility] Profile.[id number] Name Value Range Interpretation Description Data Sup [...] (0.2-1.3 MG/DL)</content> UNK 0.0-0.3 <content Saint styleCode="Bold"> Jacki Bilirubin, Direct Medical </content>< 0.2 Center MG/DL<content styleCode="Italic s"> (0.0-0.3 MG/DL)</content> Albumin 3.5-5.0 <content Saint [Mass/volume] in styleCode="Bold"> Mac hs Serum or Plasma Albumin Medical </content>4.4 Center G/DL<content styleCode="Italic s"> (3.5-5.0 G/DL)</content> ID Date Data Source HematologyRou.[id number] 10/13/2019 01:50:00 AM EDT [facility] 0400 Name Value Range Interpretation Description Data Sup porting Code Source(s) Document(s ) Leukocytes 4.4-11.0 <content Saint [#/volume] in styleCode="Bold Jacki Blood by ">White Blood Medical Automated count [...] (0.0 KCUMM)</content > ID Date Data Source GFR(Creatinine).[id number] 10/13/2019 01:50:00 AM EDT [facility] 0-0400 Name Value Range Interpretation Code Description Data Caitlin rce(s) Supporting Document(s ) UNK > 60 <content Saint Jacki styleCode="Bold"> Medical Cent er EGFR </content>110 GFR<content styleCode="Italic s"> (> 60 GFR)</content> ID Date Data Source CHMROUTINECCDA.[id number] 10/13/2019 01:50:00 AM EDT [facility] -0400 Name Value Range Interpretation Description Data Sup porting Code Source(s) Document(s ) Cannabinoids <content Saint [Presence] in styleCode="Fred Echeverria Urine by Screen d">Cannabinoid Medical method >50 ng/mL s Center </content>NEGA TIVE NG/ML (Reference Range: not available)<br/ > ID Date Data Source [facility].[id number] 10/13/2019 01:50:00 AM EDT [facility] Name Value Range Interpretation Description [...] 3.5-5.3 <content Saint [Moles/volume] in styleCode="Bold"> Robbie phs Serum or Plasma Potassium Medical </content>3.5 Center MEQ/L<content styleCode="Italic s"> (3.5-5.3 MEQ/L)</content> Sodium 137-145 <content Saint [Moles/volume] in styleCode="Bold"> Robbie phs Serum or Plasma Sodium Medical </content>141 Center [...] s"> (3.5-5.0 G/DL)</content> ID Date Data Source [id number] 10/13/2019 12:00:00 AM EDT [facility] Name Value Range Interpretation Code Description Data Caitlin rce(s) Supporting Document(s ) 2019-nCoV [facility] RNA XXX NAVID+probe- Imp This lab was ordered by [facility] and reported by [facility]. ID Date Data Source [id number] 09/27/2019 07:00:00 PM EDT [facility] Name Value Range Interpretation Description Data Sup porting Code Source(s) Document(s ) 2018 Novel [facility] Coronavirus RNA Interpretation Unspecified Specimen Qualitative NAVID Probe Detection This lab was ordered by [facility]-9250 Interface and reported by [facility]. ID Date Data Source [id number] 2019 07:13:00 PM EDT [facility] Name Value Range Interpretation Description Data Sup porting Code Source(s) Document(s ) SARS [facility] Coronavirus 2 RNA Presence Respiratory Specimen NAVID Probe Detection This lab was ordered by [facility] and reported by [facility]. ID Date Data Source [id number] 08/30/2019 04:49:00 PM EDT [facility] Name Value Range Interpretation Description Data Sup porting Code Source(s) Document(s ) SARS [facility] Coronavirus 2 RNA Presence Respiratory Specimen NAVID Probe Detection This lab was ordered by [facility] and reported by [facility]. ID Date Data Source [id number] 07/05/2019 01:57:00 PM EDT [facility] Name Value Range Interpretation Description Data Sup porting Code Source(s) Document(s ) COV2N [facility] NASOPHARYNGEAL Reportable This lab was ordered by [facility] and reported by [facility]. ID Date Data Source [id number] 06/17/2019 11:41:00 AM EDT [facility] Name Value Range Interpretation Description Data Sup porting Code Source(s) Document(s ) SARS [facility] Coronavirus 2 RNA Presence Respiratory Specimen NAVID Probe Detection This lab was ordered by [facility] and reported by [facility]. Procedure Social History Code Duration Value Status Description Data Source(s ) Smoking 10/13/2019 12:33:00 Daily Smoker completed Daily Smoker S [facility] EDT Center Smoking 10/13/2019 07:22:00 Daily Smoker completed Daily Smoker S [facility] EDT Center Smoking 10/13/2019 02:36:00 Daily Smoker completed Daily Smoker S [facility] EDT Center Smoking 10/13/2019 12:06:00 Daily Smoker completed Daily Smoker S [facility] EDT Center Smoking 10/13/2019 12:01:00 Daily Smoker completed Daily Smoker S [facility] EDT Center Vital Signs ID Date Data Source UNK Name Value Range Interpretation Code Description Data Source(s) Body temperature 36.858558 Shira 36.896916 [facility] Respiratory rate 18 /min 18 /min [facility] Heart rate 72 /min 72 /min [facility] Diastolic blood 48 mm[Hg] 48 mm[Hg] [facility] Systolic blood 90 mm[Hg] 90 mm[Hg] [facility] Body temperature 36.710990 Shira 36.357604 [facility] Respiratory rate 20 /min 20 /min [facility] Heart rate 76 /min 76 /min [facility] Diastolic blood 55 mm[Hg] 55 mm[Hg] [facility] Systolic blood 107 mm[Hg] 107 mm[Hg] [facility] Body temperature 36.951498 Shira 36.911893 [facility] Respiratory rate 18 /min 18 /min [facility] Heart rate 62 /min 62 /min [facility] Diastolic blood 53 mm[Hg] 53 mm[Hg] [facility] Systolic blood 97 mm[Hg] 97 mm[Hg] [facility] Body temperature 36.226389 Shira 36.909163 [facility] Respiratory rate 20 /min 20 /min [facility] Heart rate 80 /min 80 /min [facility] Diastolic blood 70 mm[Hg] 70 mm[Hg] [facility] Systolic blood 120 mm[Hg] 120 mm[Hg] [facility] Body temperature 37.133936 Shira 37.606503 [facility] Respiratory rate 18 /min 18 /min [facility] Heart rate 79 /min 79 /min [facility] Diastolic blood 67 mm[Hg] 67 mm[Hg] [facility] Systolic blood 110 mm[Hg] 110 mm[Hg] [facility] Medical [place] Body weight 79.487975 kg 79.938132 kg [facility] Measured [facility] Body height 182.635359 cm 182.208597 cm [facility] Body mass index 23.68 kg/m2 23.68 kg/m2 [facility] (BMI) [Ratio] Medical Center Body height 182.322951 cm 182.798139 cm [facility] Body temperature 37.409182 Shira 37.954281 [facility] Respiratory rate 20 /min 20 /min [facility] Heart rate 92 /min 92 /min [facility] Diastolic blood 64 mm[Hg] 64 mm[Hg] [facility] Systolic blood 105 mm[Hg] 105 mm[Hg] [facility] Body temperature 36.549321 Shira 36.029273 [facility] Respiratory rate 18 /min 18 /min [facility] Heart rate 83 /min 83 /min [facility] Diastolic blood 72 mm[Hg] 72 mm[Hg] [facility] Systolic blood 115 mm[Hg] 115 mm[Hg] [facility] Oxygen 99 % 99 % [facility] saturation in Medical Arterial blood Center by Pulse oximetry Body temperature 37.620566 Shira 37.619093 [facility] Respiratory rate 18 /min 18 /min [facility] Heart rate 96 /min 96 /min [facility] Diastolic blood 72 mm[Hg] 72 mm[Hg] [facility] Systolic blood 106 mm[Hg] 106 mm[Hg] [facility] Medical Center Oxygen 97 % 97 % [facility] saturation in Medical Arterial blood Center by Pulse oximetry Body temperature 37.941635 Shira 37.455923 [facility] Respiratory rate 17 /min 17 /min [facility] Heart rate 95 /min 95 /min [facility] Diastolic blood 70 mm[Hg] 70 mm[Hg] [facility] ephs pressure Medical Center Systolic blood 104 mm[Hg] 104 mm[Hg] [facility] pressure Medical Center Oxygen 95 % 95 % [facility] saturation in Medical Arterial blood Center by Pulse oximetry Body temperature 37.547612 Shira 37.973892 [facility] Respiratory rate 17 /min 17 /min [facility] Heart rate 97 /min 97 /min [facility] Diastolic blood 70 mm[Hg] 70 mm[Hg] [facility] Systolic blood 104 mm[Hg] 104 mm[Hg] [facility] pressure Medical Center Oxygen 98 % 98 % [facility] saturation in Medical Arterial blood Center by Pulse oximetry Oxygen 99 % 99 % [facility] saturation in Medical Arterial blood Center by Pulse oximetry Body weight 196 lbs 196 lbs [facility] Body temperature 97.4 Fahrenheit 97.4 Fahrenh t [facility] Diastolic blood 78 mmHg 78 mmHg [facility] Systolic blood 116 mmHg 116 mmHg [facility] Respiratory rate 18 bpm 18 bpm [facility] Heart rate 97 bpm 97 bpm [facility] Body temperature 96.9 Fahrenheit 96.9 Fahrenh t [facility] Diastolic blood 74 mmHg 74 mmHg [facility] Systolic blood 106 mmHg 106 mmHg [facility] Respiratory rate 18 bpm 18 bpm [facility] Heart rate 87 bpm 87 bpm [facility] Body temperature 97.4 Fahrenheit 97.4 Fahrenh t [facility] Body temperature 97.2 Fahrenheit 97.2 Fahrenh t [facility] Diastolic blood 75 mmHg 75 mmHg [facility] Systolic blood 124 mmHg 124 mmHg [facility] Respiratory rate 18 bpm 18 bpm [facility] Heart rate 96 bpm 96 bpm [facility] Body temperature 96.7 Fahrenheit 96.7 Fahrenhei t [facility] Diastolic blood 76 mmHg 76 mmHg [facility] Systolic blood 108 mmHg 108 mmHg [facility] Respiratory rate 18 bpm 18 bpm [facility] Heart rate 96 bpm 96 bpm [facility] Body temperature 96.7 Fahrenheit 96.7 Fahrenhei t [facility] Body temperature 96.9 Fahrenheit 96.9 Fahrenhei t [facility] Body weight 195 lbs 195 lbs [facility] Diastolic blood 81 mmHg 81 mmHg [facility] Systolic blood 112 mmHg 112 mmHg [facility] Respiratory rate 18 bpm 18 bpm [facility] Heart rate 87 bpm 87 bpm [facility] Body temperature 96.5 Fahrenheit 96.5 Fahrenhei t [facility] Diastolic blood 73 mmHg 73 mmHg [facility] Systolic blood 114 mmHg 114 mmHg [facility] Respiratory rate 18 bpm 18 bpm [facility] Heart rate 87 bpm 87 bpm [facility] Body temperature 97.0 Fahrenheit 97.0 Fahrenhei t [facility] Diastolic blood 77 mmHg 77 mmHg [facility] Systolic blood 116 mmHg 116 mmHg [facility] Respiratory rate 18 bpm 18 bpm [facility] Heart rate 84 bpm 84 bpm [facility] Body temperature 97.1 Fahrenheit 97.1 Fahrenhei t [facility] Diastolic blood 75 mmHg 75 mmHg [facility] Systolic blood 112 mmHg 112 mmHg [facility] Respiratory rate 18 bpm 18 bpm [facility] Heart rate 80 bpm 80 bpm [facility] Body temperature 97.1 Fahrenheit 97.1 Fahrenhei t [facility] Diastolic blood 78 mmHg 78 mmHg [facility] Systolic blood 119 mmHg 119 mmHg [facility] Respiratory rate 18 bpm 18 bpm [facility] Heart rate 82 bpm 82 bpm [facility] Body temperature 97.2 Fahrenheit 97.2 Fahrenhei t [facility] Diastolic blood 79 mmHg 79 mmHg [facility] Systolic blood 110 mmHg 110 mmHg [facility] Respiratory rate 18 bpm 18 bpm [facility] Heart rate 91 bpm 91 bpm [facility] Body temperature 97.2 Fahrenheit 97.2 Fahrenhei t [facility] Diastolic blood 64 mmHg 64 mmHg [facility] Systolic blood 117 mmHg 117 mmHg [facility] Heart rate 88 bpm 88 bpm [facility] Body temperature 96.7 Fahrenheit 96.7 Fahrenhei t [facility] Diastolic blood 75 mmHg 75 mmHg [facility] Systolic blood 114 mmHg 114 mmHg [facility] Respiratory rate 18 bpm 18 bpm [facility] Heart rate 72 bpm 72 bpm [facility] Body weight 204 lbs 204 lbs [facility] Diastolic blood 80 mmHg 80 mmHg [facility] Systolic blood 120 mmHg 120 mmHg [facility] Respiratory rate 18 bpm 18 bpm [facility] Heart rate 70 bpm 70 bpm [facility] Diastolic blood 83 mmHg 83 mmHg [facility] Systolic blood 118 mmHg 118 mmHg [facility] Respiratory rate 18 bpm 18 bpm [facility] Heart rate 84 bpm 84 bpm [facility] Body temperature 96.4 Fahrenheit 96.4 Fahrenhei t [facility] Diastolic blood 82 mmHg 82 mmHg [facility] Systolic blood 114 mmHg 114 mmHg [facility] Respiratory rate 18 bpm 18 bpm [facility] Heart rate 89 bpm 89 bpm [facility] Body weight 206 lbs 206 lbs [facility] Diastolic blood 70 mmHg 70 mmHg [facility] Systolic blood 100 mmHg 100 mmHg [facility] Respiratory rate 18 bpm 18 bpm [facility] Heart rate 93 bpm 93 bpm [facility] Body temperature 97.8 Fahrenheit 97.8 Fahrenhei t [facility] Diastolic blood 81 mmHg 81 mmHg [facility] Systolic blood 112 mmHg 112 mmHg [facility] Respiratory rate 18 bpm 18 bpm [facility] Heart rate 88 bpm 88 bpm [facility] Body temperature 96.0 Fahrenheit 96.0 Fahrenhei t [facility] Diastolic blood 83 mmHg 83 mmHg [facility] Systolic blood 112 mmHg 112 mmHg [facility] Respiratory rate 18 bpm 18 bpm [facility] Heart rate 83 bpm 83 bpm [facility] Body temperature 96.1 Fahrenheit 96.1 Fahrenhei t [facility] Diastolic blood 76 mmHg 76 mmHg [facility] Systolic blood 120 mmHg 120 mmHg [facility] Respiratory rate 16 bpm 16 bpm [facility] Heart rate 91 bpm 91 bpm [facility] Body temperature 96.6 Fahrenheit 96.6 Fahrenhei t [facility] Diastolic blood 83 mmHg 83 mmHg [facility] Systolic blood 122 mmHg 122 mmHg [facility] Respiratory rate 18 bpm 18 bpm [facility] Heart rate 109 bpm 109 bpm [facility] Diastolic blood 86 mmHg 86 mmHg [facility] Systolic blood 118 mmHg 118 mmHg [facility] Respiratory rate 18 bpm 18 bpm [facility] Heart rate 90 bpm 90 bpm [facility] Body temperature 96.3 Fahrenheit 96.3 Fahrenhei t [facility] Diastolic blood 95 mmHg 95 mmHg [facility] Systolic blood 126 mmHg 126 mmHg [facility] Respiratory rate 18 bpm 18 bpm [facility] Heart rate 107 bpm 107 bpm [facility] Body weight 206 lbs 206 lbs [facility] Diastolic blood 77 mmHg 77 mmHg [facility] Systolic blood 110 mmHg 110 mmHg [facility] Respiratory rate 18 bpm 18 bpm [facility] Heart rate 86 bpm 86 bpm [facility] Diastolic blood 87 mmHg 87 mmHg [facility] Systolic blood 121 mmHg 121 mmHg [facility] Respiratory rate 18 bpm 18 bpm [facility] Heart rate 107 bpm 107 bpm [facility] Body temperature 97.4 Fahrenheit 97.4 Fahrenhei t [facility] Diastolic blood 79 mmHg 79 mmHg [facility] Systolic blood 111 mmHg 111 mmHg [facility] Respiratory rate 16 bpm 16 bpm [facility] Heart rate 89 bpm 89 bpm [facility] Body temperature 97.1 Fahrenheit 97.1 Fahrenhei t [facility] Diastolic blood 73 mmHg 73 mmHg [facility] Systolic blood 115 mmHg 115 mmHg [facility] Respiratory rate 18 bpm 18 bpm [facility] Heart rate 104 bpm 104 bpm [facility] Body temperature 97.4 Fahrenheit 97.4 Fahrenhei t [facility] ID Date Data Source [id number] 07/26/2019 09:21:32 AM EDT [facility] Name Value Range Interpretation Code Description Data Source(s) Body weight Measured 196 lb 196 lb [facility] Body weight Measured 195 lb 195 lb [facility] Body weight Measured 204 lb 204 lb [facility] ID Date Data Source [id number] 07/13/2019 07:41:17 PM T [facility] Name Value Range Interpretation Code Description Data Source(s) Body weight Measured 204 lb 204 lb [facility] Patient Treatment Plan of Care Planned Activity Planned Date Details Description Data Source (s) OLANZapine 20 mg Tablet [facility] OLANZapine 10 mg Tablet [facility] loratadine 10 mg Tablet [facility] OLANZapine 5 mg Tablet [facility] OLANZapine 20 mg Tablet [facility] nalOXone (Narcan) 4 [facility]actuation Center spray,non-aerosol, Ordered By: [facility]: [facility] puff nasal every two hours PRN substance misuse Clonazepam 1 MG Oral Tablet [facility] Omeprazole 20 MG Delayed [facility] oxcarbazepine [address] [facility] gabapentin [address] [facility] Folic Acid 1 MG Oral Tablet [facility]
--- OUTSIDE RECORDS SUMMARY | 2019-11-14 14:25 | XMS ---
[...] is protected by Article 27-F of the [place] Public Health law. If you continue you may haveaccess to information: Regarding HIV / AIDS; Provided by facilities licensed or operated by the [facility] Office of Mental Health; or Provided by the [facility] Office for People With Developmental Disabilities. If such information is present, then the following [facility] mandated warning applies: This information has been [...] law may result in a fine or assisted sentence or both. A general authorization for the release of medical or other information is NOT sufficient authorization for further disclosure. Encounters Encounter Providers Location Date Indications Data Source(s ) Inpatient Attender: NOEMI H-HAL5 10/12/2019 [facility]realibertad JEREMIAS FRANKLIN 11:56:00 PM EDT [facility] AAttender: STAFF ED - 10/15/2019 STAFF 01:00:00 PM EDT PHYSICIANAdmitter: NOEMI FRANKLIN AReferrer: NOEMI FRANKLIN A Patient discharged. Inpatient Attender: [facility] 07/13/2019 07:16:00 [facility] EDT - [address] [place] [address] 09:44:00 PM EDT Patient discharged. Outpatient [facility] 07/13/2019 05:26:00 PM EDT - [address] [place] [address] 07:40:00 PM EDT Patient discharged. Inpatient Attender: [facility] 09/23/2018 09:33:00 [facility] EDT - 10/16/2018 [facility] 10:21:00 PM EDT Patient discharged. Outpatient [facility] 09/23/2018 05:57:00 PM EDT - [address] [place] [address] 10:20:00 PM EDT Patient discharged. Medications Medication Brand Start Product Dose Route [facility] Indications Reaction Description Data Name Date Form [...] e, Capsule, Ordere Ordered By: d [facility]: 1 David, capsule MDDire oral three ctions times a day : 1 capsul e oral three times a day Folic Acid foLIC 1 complet Saint 1 MG Oral Acid 1 ed Jacki Tablet mg Medical foLIC Acid Tablet Center 1 mg , Tablet, Ordere Ordered By: d By: [facility] s: 1 tablet David, oral daily MDDire ctions : 1 tablet oral daily Clonazepam clonaz 1 complet Vira t 1 MG Oral ePAM 1 ed Jacki Tablet mg Medical clonazePAM Tablet Center 1 mg , Tablet, Ordere Ordered By: d By: Shavon [facility] MDDirection St. s: 1 tablet David, oral twice MDDire a day ctions : 1 tablet oral twice a day Omeprazole omepra 1 complet Vira t 20 MG zole ed Jacki Delayed 20 mg Medical Release capsul Center Oral e,blas Capsule yed omeprazole releas 20 mg e(DR/Olga capsule,del C), ayed Ordere release(DR/ d By: ANGELIC), Childe Ordered By: [facility] MDDirection MDDire s: 1 ctions capsule : 1 oral daily capsul e oral daily oxcarbazepi OXcarb 1 complet Soham nt ne 600 MG azepin ed Jacki Oral Tablet e 600 Medical OXcarbazepi mg Center ne 600 mg Tablet Tablet, , Ordered By: Shiraz rincon By: [facility] Childe MDDirection [facility] s: [address] oral twice David, a day MDDire ctions : 1 tablet oral twice a day nalOXone Naloxo 1 complet Narcan Vira t (Narcan) 4 ne ed [facility] mg/actuatio Hydroc Medica l n hlorid Center spray,non-a e 40 erosol, MG/ML Ordered By: Nasal Childebert [facility] [place] [facility] 1 puff nasal every two hours PRN substance misuse OLANZapine complet Saint 5 mg Tablet [facility] OLANZapine complet Saint 20 mg [facility] OLANZapine complet Saint 10 mg [facility] loratadine complet Saint 10 mg [facility] OLANZapine complet Saint 20 mg [facility] Insurance Providers Payer name Policy type Policy ID Covered Covered libertarian's Policy P serina / Coverage libertarian ID relationship to Delaney Inf ormation type delaney DEMETRI [id number] SP [id number] 600 HEALTH NON CAP W [id number] 01 [id number] DEMETRI W [id number] 01 [id number] DEMETRI CARE W [id number] 01 [id number] IN DEMETRI [id number] SP [id number] 600 HEALTH NON CAP SELF PAY [id number] Self [id number] MEDICAID INP [id number] Self [id number] Y REHAB [facility] DEMETRI [id number] Self [id number] CARE SELF PAY 00 Self 00 MEDICAID INP [id number] Self [id number] Y REHAB Problems, Conditions, and Diagnoses Code Display Name Description Problem Type Effective Data Sour ce(s) Dates 66816298 Bipolar disorder Bipolar disorder Complaint [facility] EDT [id number] Tobacco user Tobacco user Complaint 09/23/2018 [facility]finding[facility] 12:[facility]00 PM Hospital EDT [id number] Cocaine abuse Cocaine abuse Complaint 09/23/[facility]00 PM Hospital EDT [id number] Alcohol abuse Alcohol abuse Complaint 09/23/2018 [facility] (disorder) 12:00:00 PM Hospital EDT R19.7 Diarrhea, DIARRHEA, Diagnosis 10/15/2019 [facility] unspecified UNSPECIFIED 01:00:[address] EDT K21.9 Gastro-esophageal GASTRO-ESOPHAGEAL Diagnosis 10/15/2019 [facility] reflux disease REFLUX DISEASE 01:00:00 PM Medic al Center without WITHOUT EDT esophagitis ESOPHAGITIS Y90.7 Blood alcohol BLOOD ALCOHOL Diagnosis 10/15/2019 [facility] level of 200-239 LEVEL OF 200-239 01:00:00 PM [facility] mg/100 ml MG/100 ML EDT F10.229 Alcohol ALCOHOL Diagnosis 10/15/2019 [facility] dependence with DEPENDENCE WITH 01:00:00 PM Med ical Center intoxication, INTOXICATION, EDT unspecified UNSPECIFIED E87.1 Hypo-osmolality HYPO-OSMOLALITY Diagnosis 10/15/2019 Vira Echeverria and hyponatremia AND HYPONATREMIA 01:00:00 PM [facility] EDT F10.239 Alcohol ALCOHOL Diagnosis 10/12/2019 [facility] dependence with DEPENDENCE WITH 11:56:00 PM Med ical Center withdrawal, WITHDRAWAL, EDT unspecified UNSPECIFIED Results ID Date Data Source [id number] 11/09/2019 08:15:00 PM EDT [facility] Name Value Range Interpretation Description Data Sup porting Code Source(s) Document(s ) SARS [facility] coronavirus 2 RNA This lab was ordered by [facility] Ac ct Bill Inter and reported by [facility]. ID Date Data Source CHMROUTINECCDA.[id number] 10/15/2019 06:01:00 AM EDT [facility] -0400 Name Value Range Interpretation Description Data [...] Data Source Liver 10/14/2019 07:21:00 AM EDT [facility] Profile.[id number] Name Value Range Interpretation Description Data Sup [...] s"> (3.5-5.0 G/DL)</content> ID Date Data Source GFR(Creatinine).[id number] 10/14/2019 07:21:00 AM EDT [facility] 0-0400 Name Value Range Interpretation Code Description Data Caitlin rce(s) Supporting Document(s ) UNK > 60 <content [facility] E[facility]ria styleCode="Bold"> Medical Cent er EGFR </content>110 GFR<content styleCode="Italic s"> (> 60 GFR)</content> ID Date Data Source CHMROUTINECCDA.[id number] 10/14/2019 07:21:00 AM EDT [facility] -0400 Name Value Range Interpretation Description Data Sup porting Code Source(s) Document(s ) UNK 2.3-3.5 <content [facility] styleCode="Bold Medical ">Globulin Center </content>3.2 G/DL<content styleCode="Ital ics"> (2.3-3.5 G/DL)</content> Protein 6.3-8.2 <content [facility] [Mass/volum styleCode="Bold Medical e] in Serum ">Total Protein Center or Plasma </content>6.7 G/DL<content styleCode="Ital ics"> (6.3-8.2 G/DL)</content> UNK >= 1.0 <content [facility] styleCode="Bold Medical ">AG Ratio Center </content>1.1 <content styleCode="Ital ics"> (>= 1.0 )</content> ID Date Data Source [facility].[id number] 10/14/2019 07:21:00 AM EDT [facility] Name Value Range Interpretation Description Data Sup [...] s"> (3.5-5.0 G/DL)</content> ID Date Data Source Urinalysis.[id number] 10/13/2019 01:50:00 AM EDT [facility] 0 Name Value Range Interpretation Description Data Sup porting Code Source(s) Document(s ) UNK CLEAR <content Saint styleCode="[facility] d">Urine Medical Clarity Center </content>MARYLU R <content [...] by Test d">Urine Medical strip Specific Center [place] </content><= 1.005 L<content styleCode="Abiola lics"> (1.015-1.025 )</content> [...] lics"> (NEGATIVE )</content> ID Date Data Source [facility] 10/13/2019 01:50:00 AM EDT [facility] Profile.[id number] Name Value Range Interpretation Description Data Sup [...] s"> (3.5-5.0 G/DL)</content> ID Date Data Source HematologyRou.[id number] 10/13/2019 01:50:00 AM EDT [facility] 0400 Name Value Range Interpretation Description Data [...] (0.0 KCUMM)</content > ID Date Data Source GFR(Creatinine).[id number] 10/13/2019 01:50:00 AM EDT [facility] 0-0400 Name Value Range Interpretation Code Description Data Caitlin rce(s) Supporting Document(s ) UNK > 60 <content [facility] Jacki styleCode="Bold"> Medical Cent er EGFR </content>110 GFR<content styleCode="Italic s"> (> 60 GFR)</content> ID Date Data Source CHMROUTINECCDA.[id number] 10/13/2019 01:50:00 AM EDT [facility] -0400 Name Value Range Interpretation Description Data Sup porting Code Source(s) Document(s ) Cannabinoids <content Saint [Presence] in styleCode="Fred Echeverria Urine by Screen d">Cannabinoid Medical method >50 ng/mL s Center </content>NEGA TIVE NG/ML (Reference Range: not available)<br/ > ID Date Data Source [facility].[id number] 10/13/2019 01:50:00 AM EDT [facility] Name Value Range Interpretation Description [...] s"> (3.5-5.0 G/DL)</content> ID Date Data Source [id number] 10/13/2019 12:00:00 AM EDT [facility] Name Value Range Interpretation Code Description Data Caitlin rce(s) Supporting Document(s ) 2019-nCoV [facility] RNA XXX NAVID+probe- Imp This lab was ordered by [facility] and reported by [facility]. ID Date Data Source [id number] 09/27/2019 07:00:00 PM EDT [facility] Name Value Range Interpretation Description Data Sup porting Code Source(s) Document(s ) 2018 Novel [facility] Coronavirus RNA Interpretation Unspecified Specimen Qualitative NAVID Probe Detection This lab was ordered by [facility]-9250 Interface and reported by [facility]. ID Date Data Source [id number] 2019 07:13:00 PM EDT [facility] Name Value Range Interpretation Description Data Sup porting Code Source(s) Document(s ) SARS [facility] Coronavirus 2 RNA Presence Respiratory Specimen NAVID Probe Detection This lab was ordered by [facility] and reported by [facility]. ID Date Data Source [id number] 08/30/2019 04:49:00 PM EDT [facility] Name Value Range Interpretation Description Data Sup porting Code Source(s) Document(s ) SARS [facility] Coronavirus 2 RNA Presence Respiratory Specimen NAVID Probe Detection This lab was ordered by [facility] and reported by [facility]. ID Date Data Source [id number] 07/05/2019 01:57:00 PM EDT [facility] Name Value Range Interpretation Description Data Sup porting Code Source(s) Document(s ) COV2N [facility] NASOPHARYNGEAL Reportable This lab was ordered by [facility] and reported by [facility]. ID Date Data Source [id number] 06/17/2019 11:41:00 AM EDT [facility] Name Value Range Interpretation Description Data Sup porting Code Source(s) Document(s ) SARS [facility] Coronavirus 2 RNA Presence Respiratory Specimen NAVID Probe Detection This lab was ordered by [facility] and reported by [facility]. Procedure Social History Code Duration Value Status Description Data Source(s ) Smoking 10/13/2019 12:33:00 Daily Smoker completed Daily Smoker S [facility] EDT Center Smoking 10/13/2019 07:22:00 Daily Smoker completed Daily Smoker S [facility] EDT Center Smoking 10/13/2019 02:36:00 Daily Smoker completed Daily Smoker S [facility] EDT Center Smoking 10/13/2019 12:06:00 Daily Smoker completed Daily Smoker S [facility] EDT Center Smoking 10/13/2019 12:01:00 Daily Smoker completed Daily Smoker S [facility] EDT Center Vital Signs ID Date Data Source UNK Name Value Range Interpretation Code Description Data Source(s) Body temperature 36.695262 Shira 36.246370 [facility] Respiratory rate 18 /min 18 /min [facility] Heart rate 72 /min 72 /min [facility] Diastolic blood 48 mm[Hg] 48 mm[Hg] [facility] Systolic blood 90 mm[Hg] 90 mm[Hg] [facility] Body temperature 36.349322 Shira 36.158104 [facility] Respiratory rate 20 /min 20 /min [facility] Heart rate 76 /min 76 /min [facility] Diastolic blood 55 mm[Hg] 55 mm[Hg] [facility] Systolic blood 107 mm[Hg] 107 mm[Hg] [facility] Body temperature 36.013926 Shira 36.829673 [facility] Respiratory rate 18 /min 18 /min [facility] Heart rate 62 /min 62 /min [facility] Diastolic blood 53 mm[Hg] 53 mm[Hg] [facility] Systolic blood 97 mm[Hg] 97 mm[Hg] [facility] Body temperature 36.946030 Shira 36.179300 [facility] Respiratory rate 20 /min 20 /min [facility] Heart rate 80 /min 80 /min [facility] Diastolic blood 70 mm[Hg] 70 mm[Hg] [facility] Systolic blood 120 mm[Hg] 120 mm[Hg] [facility] Body temperature 37.801675 Shira 37.500588 [facility] Respiratory rate 18 /min 18 /min [facility] Heart rate 79 /min 79 /min [facility] Diastolic blood 67 mm[Hg] 67 mm[Hg] [facility] Systolic blood 110 mm[Hg] 110 mm[Hg] [facility] [place] Body weight 79.503359 kg 79.923146 kg [facility] Measured [facility] Body height 182.130815 cm 182.244702 cm [facility] Body mass index 23.68 kg/m2 23.68 kg/m2 [facility] (BMI) [Ratio] Medical Center Body height 182.163653 cm 182.982269 cm [facility] Body temperature 37.774868 Shira 37.889441 [facility] Respiratory rate 20 /min 20 /min [facility] Heart rate 92 /min 92 /min [facility] Diastolic blood 64 mm[Hg] 64 mm[Hg] [facility] Systolic blood 105 mm[Hg] 105 mm[Hg] [facility] Body temperature 36.953675 Shira 36.164592 [facility] Respiratory rate 18 /min 18 /min [facility] Heart rate 83 /min 83 /min [facility] Diastolic blood 72 mm[Hg] 72 mm[Hg] [facility] Systolic blood 115 mm[Hg] 115 mm[Hg] [facility] Oxygen 99 % 99 % [facility] saturation in Medical Arterial blood Center by Pulse oximetry Body temperature 37.814579 Shira 37.995169 [facility] Respiratory rate 18 /min 18 /min [facility] Heart rate 96 /min 96 /min [facility] Diastolic blood 72 mm[Hg] 72 mm[Hg] [facility] Systolic blood 106 mm[Hg] 106 mm[Hg] [facility] Oxygen 97 % 97 % [facility] saturation in Medical Arterial blood Center by Pulse oximetry Body temperature 37.473896 Shira 37.956102 [facility] Respiratory rate 17 /min 17 /min [facility] Medical Center Heart rate 95 /min 95 /min [facility] Diastolic blood 70 mm[Hg] 70 mm[Hg] [facility] pressure Medical Center Systolic blood 104 mm[Hg] 104 mm[Hg] [facility] pressure Medical Center Oxygen 95 % 95 % [facility] saturation in Medical Arterial blood Center by Pulse oximetry Body temperature 37.263038 Shira 37.003222 [facility] Respiratory rate 17 /min 17 /min [facility] Medical Center Heart rate 97 /min 97 /min [facility] Diastolic blood 70 mm[Hg] 70 mm[Hg] [facility] pressure Medical Center Systolic blood 104 mm[Hg] 104 mm[Hg] [facility] pressure Medical Center Oxygen 98 % 98 % [facility] saturation in Medical Arterial blood Center by Pulse oximetry Oxygen 99 % 99 % [facility] saturation in Medical Arterial blood Center by Pulse oximetry Body weight 196 lbs 196 lbs [facility] Body temperature 97.4 Fahrenheit 97.4 Fahrenh t [facility] Diastolic blood 78 mmHg 78 mmHg [facility] Systolic blood 116 mmHg 116 mmHg [facility] Respiratory rate 18 bpm 18 bpm [facility] Heart rate 97 bpm 97 bpm [facility] Body temperature 96.9 Fahrenheit 96.9 Fahrenh t [facility] Diastolic blood 74 mmHg 74 mmHg [facility] Systolic blood 106 mmHg 106 mmHg [facility] Respiratory rate 18 bpm 18 bpm [facility] Heart rate 87 bpm 87 bpm [facility] Body temperature 97.4 Fahrenheit 97.4 Fahrenh t [facility] Body temperature 97.2 Fahrenheit 97.2 Fahrenh t [facility] Diastolic blood 75 mmHg 75 mmHg [facility] Systolic blood 124 mmHg 124 mmHg [facility] Respiratory rate 18 bpm 18 bpm [facility] Heart rate 96 bpm 96 bpm [facility] Body temperature 96.7 Fahrenheit 96.7 Fahrenhei t [facility] Diastolic blood 76 mmHg 76 mmHg [facility] Systolic blood 108 mmHg 108 mmHg [facility] Respiratory rate 18 bpm 18 bpm [facility] Heart rate 96 bpm 96 bpm [facility] Body temperature 96.7 Fahrenheit 96.7 Fahrenhei t [facility] Body temperature 96.9 Fahrenheit 96.9 Fahrenhei t [facility] Body weight 195 lbs 195 lbs [facility] Diastolic blood 81 mmHg 81 mmHg [facility] Systolic blood 112 mmHg 112 mmHg [facility] Respiratory rate 18 bpm 18 bpm [facility] Heart rate 87 bpm 87 bpm [facility] Body temperature 96.5 Fahrenheit 96.5 Fahrenhei t [facility] Diastolic blood 73 mmHg 73 mmHg [facility] Systolic blood 114 mmHg 114 mmHg [facility] Respiratory rate 18 bpm 18 bpm [facility] Heart rate 87 bpm 87 bpm [facility] Body temperature 97.0 Fahrenheit 97.0 Fahrenhei t [facility] Diastolic blood 77 mmHg 77 mmHg [facility] Systolic blood 116 mmHg 116 mmHg [facility] Respiratory rate 18 bpm 18 bpm [facility] Heart rate 84 bpm 84 bpm [facility] Body temperature 97.1 Fahrenheit 97.1 Fahrenhei t [facility] Diastolic blood 75 mmHg 75 mmHg [facility] Systolic blood 112 mmHg 112 mmHg [facility] Respiratory rate 18 bpm 18 bpm [facility] Heart rate 80 bpm 80 bpm [facility] Body temperature 97.1 Fahrenheit 97.1 Fahrenhei t [facility] Diastolic blood 78 mmHg 78 mmHg [facility] Systolic blood 119 mmHg 119 mmHg [facility] Respiratory rate 18 bpm 18 bpm [facility] Heart rate 82 bpm 82 bpm [facility] Body temperature 97.2 Fahrenheit 97.2 Fahrenhei t [facility] Diastolic blood 79 mmHg 79 mmHg [facility] Systolic blood 110 mmHg 110 mmHg [facility] Respiratory rate 18 bpm 18 bpm [facility] Heart rate 91 bpm 91 bpm [facility] Body temperature 97.2 Fahrenheit 97.2 Fahrenhei t [facility] Diastolic blood 64 mmHg 64 mmHg [facility] Systolic blood 117 mmHg 117 mmHg [facility] Heart rate 88 bpm 88 bpm [facility] Body temperature 96.7 Fahrenheit 96.7 Fahrenhei t [facility] Diastolic blood 75 mmHg 75 mmHg [facility] Systolic blood 114 mmHg 114 mmHg [facility] Respiratory rate 18 bpm 18 bpm [facility] Heart rate 72 bpm 72 bpm [facility] Body weight 204 lbs 204 lbs [facility] Diastolic blood 80 mmHg 80 mmHg [facility] Systolic blood 120 mmHg 120 mmHg [facility] Respiratory rate 18 bpm 18 bpm [facility] Heart rate 70 bpm 70 bpm [facility] Diastolic blood 83 mmHg 83 mmHg [facility] Systolic blood 118 mmHg 118 mmHg [facility] Respiratory rate 18 bpm 18 bpm [facility] Heart rate 84 bpm 84 bpm [facility] Body temperature 96.4 Fahrenheit 96.4 Fahrenhei t [facility] Diastolic blood 82 mmHg 82 mmHg [facility] Systolic blood 114 mmHg 114 mmHg [facility] Respiratory rate 18 bpm 18 bpm [facility] Heart rate 89 bpm 89 bpm [facility] Body weight 206 lbs 206 lbs [facility] Diastolic blood 70 mmHg 70 mmHg [facility] Systolic blood 100 mmHg 100 mmHg [facility] Respiratory rate 18 bpm 18 bpm [facility] Heart rate 93 bpm 93 bpm [facility] Body temperature 97.8 Fahrenheit 97.8 Fahrenhei t [facility] Diastolic blood 81 mmHg 81 mmHg [facility] Systolic blood 112 mmHg 112 mmHg [facility] Respiratory rate 18 bpm 18 bpm [facility] Heart rate 88 bpm 88 bpm [facility] Body temperature 96.0 Fahrenheit 96.0 Fahrenhei t [facility] Diastolic blood 83 mmHg 83 mmHg [facility] Systolic blood 112 mmHg 112 mmHg [facility] Respiratory rate 18 bpm 18 bpm [facility] Heart rate 83 bpm 83 bpm [facility] Body temperature 96.1 Fahrenheit 96.1 Fahrenhei t [facility] Diastolic blood 76 mmHg 76 mmHg [facility] Systolic blood 120 mmHg 120 mmHg [facility] Respiratory rate 16 bpm 16 bpm [facility] Heart rate 91 bpm 91 bpm [facility] Body temperature 96.6 Fahrenheit 96.6 Fahrenhei t [facility] Diastolic blood 83 mmHg 83 mmHg [facility] Systolic blood 122 mmHg 122 mmHg [facility] Respiratory rate 18 bpm 18 bpm [facility] Heart rate 109 bpm 109 bpm [facility] Diastolic blood 86 mmHg 86 mmHg [facility] Systolic blood 118 mmHg 118 mmHg [facility] Respiratory rate 18 bpm 18 bpm [facility] Heart rate 90 bpm 90 bpm [facility] Body temperature 96.3 Fahrenheit 96.3 Fahrenhei t [facility] Diastolic blood 95 mmHg 95 mmHg [facility] Systolic blood 126 mmHg 126 mmHg [facility] Respiratory rate 18 bpm 18 bpm [facility] Heart rate 107 bpm 107 bpm [facility] Body weight 206 lbs 206 lbs [facility] Diastolic blood 77 mmHg 77 mmHg [facility] Systolic blood 110 mmHg 110 mmHg [facility] Respiratory rate 18 bpm 18 bpm [facility] Heart rate 86 bpm 86 bpm [facility] Diastolic blood 87 mmHg 87 mmHg [facility] Systolic blood 121 mmHg 121 mmHg [facility] Respiratory rate 18 bpm 18 bpm [facility] Heart rate 107 bpm 107 bpm [facility] Body temperature 97.4 Fahrenheit 97.4 Fahrenhei t [facility] Diastolic blood 79 mmHg 79 mmHg [facility] Systolic blood 111 mmHg 111 mmHg [facility] Respiratory rate 16 bpm 16 bpm [facility] Heart rate 89 bpm 89 bpm [facility] Body temperature 97.1 Fahrenheit 97.1 Fahrenhei t [facility] Diastolic blood 73 mmHg 73 mmHg [facility] Systolic blood 115 mmHg 115 mmHg [facility] Respiratory rate 18 bpm 18 bpm [facility] Heart rate 104 bpm 104 bpm [facility] Body temperature 97.4 Fahrenheit 97.4 Fahrenhei t [facility] ID Date Data Source [id number] 07/26/2019 09:21:32 AM EDT [facility] Name Value Range Interpretation Code Description Data Source(s) Body weight Measured 196 lb 196 lb [facility] Body weight Measured 195 lb 195 lb [facility] Body weight Measured 204 lb 204 lb [facility] ID Date Data Source [id number] 07/13/2019 07:41:17 PM T [facility] Name Value Range Interpretation Code Description Data Source(s) Body weight Measured 204 lb 204 lb [facility] Patient Treatment Plan of Care Planned Activity Planned Date Details Description Data Source (s) OLANZapine 20 mg Tablet [facility] OLANZapine 10 mg Tablet [facility] loratadine 10 mg Tablet [facility] OLANZapine 5 mg Tablet [facility] OLANZapine 20 mg Tablet [facility] nalOXone (Narcan) 4 [facility] spray,non-aerosol, Ordered By: [facility]os [facility]: [facility] puff nasal every two hours PRN substance misuse Clonazepam 1 MG Oral Tablet [facility] Omeprazole 20 MG Delayed [facility] Medical [facility] Oral Capsule Center oxcarbazepine 600 MG Oral [facility] gabapentin [address] [facility] Folic Acid 1 MG Oral Tablet [facility]
[2019-11-14] MEDS ORDERED: LOPERAMIDE HCL 2 MG CAPSULE PO PRN (15:17)
[2019-11-14] MEDS ORDERED: MENTHOL/PHENOL 1 EACH UD MM PRN (15:17)
[2019-11-14] MEDS ORDERED: P-EPHED 60MG/TRIPROLIDI 2.5MG TABLET PO PRN (15:17)
[2019-11-14] MEDS ORDERED: guaiFENesin 200 MG/10 ML 10 ML UNIT-DOSE CUPS PO PRN (15:17)
[2019-11-14] MEDS ORDERED: MAGNESIUM CITRATE 300 ML BOTTLE PO PRN (15:17)
--- NOTE | 2019-11-14 15:23 | HP ---
[facility] Rehab Assess/Revision - Admission History Admitted to Rehab from: [facility] Date of Admission to Rehab: 11/14/2019 - Vital signs Vital Signs: Vital Signs Period Temp Pulse Resp BP Sys/Dang Pulse Ox Last 24 Hr 97.5 F 92 18 124/73 98 - Findings Detox History & Physical reviewed: Yes Concur with findings: Yes Comments/Additional Findings: Patient's Medical / Medication History reviewed prior to Discharge from Detox Unit. Patient was Discharged from Detox unit to be taken over to Rehab unit in stable medical condition. Inpatient Rehab Admission - Rehab Decision to Admit Inpatient rehab admission?: Yes - Initial Determination Are CD services needed?: Yes Free of communicable disease: Yes Not in need of hospitalization: Yes - Rehab Admission Criteria Previous failed treatment: No Poor recovery environment: No Comorbidities: Yes Lacks judgement: Yes Patient is meeting Inpatient Rehab admission criteria:: Yes
--- NOTE | 2019-11-14 16:00 | CONSULT ---
[facility] Psychiatric Consult - Data Date of interview: 11/14/19 Admission source: Transfer from [address] [place] [address]. Identifying data: Detoxification completed at [address] [place] [address]. Patient is now entering rehabilitation treatment at [address] for continuity of care (JASMIN + co- morbid bipolar disorder). Substance Abuse History: Discussed with the patient. JASMIN profile as follows : Smoking history: Current every day smoker. Have you smoked in the past 12 months: Yes. Aproximately how many cigarettes per day: 10. Hx Chewing Tobacco Use: No. Initiated information on smoking cessation: Yes. 'Breaking Loose' booklet given: 11/09/19. - Substance & Tx. History. Hx Alcohol Use: Yes. Hx Substance Use: Yes. Substance Use Type: Cocaine. Hx Substance Use Treatment: Yes ([facility]). - Substances abused. Alcohol. Substance route: Oral. Frequency: Daily. Amount used: 10 x 24oz. beer. Age of first use: 18. Date of last use: 11/09/19. History of past JASMIN treatment failures. Medical History: Medical profile is remarkable for neuropathy, chronic lumbar pain, Cisneros's esophagus and GERD. No known allergies. Psychiatric History: No changes in psychiatric history since examination of 11/10/19 during detoxification phase on [address] [place] [address]. Refer to psychiatric consult note by Dr Chacon for details. Physical/Sexual Abuse/Trauma History: Patient denies. Additional Comment: Urine drug screen results: TEE-Cocaine, BZO-Benzodiazepines. Noted. Mental Status Exam - Mental Status Exam Alert and Oriented to: Time, Place, Person Cognitive Function: Good Patient Appearance: Well Groomed Mood: Hopeful, Euthymic Affect: Appropriate, Normal Range Patient Behavior: Appropriate (friendly), Cooperative Speech Pattern: Clear, Appropriate Voice Loudness: Normal Thought Process: Intact, Goal Oriented Thought Disorder: Not Present Hallucinations: Denies Suicidal Ideation: Denies Homicidal Ideation: Denies Insight/Judgement: Fair Sleep: Poorly, Difficulty falling asleep (wants to be on trazodone) Appetite: Good Gait/Station: Normal Psychiatric Findings - Problem List ([place] 1, 2,3) (1) Alcohol dependence, uncomplicated Current Visit: Yes Status: Chronic (2) Cocaine dependence Current Visit: Yes Status: Chronic Qualifiers: Substance use status: uncomplicated Qualified Code(s): F14.20 - Cocaine dependence, uncomplicated (3) Nicotine dependence Current Visit: Yes Status: Chronic (4) Bipolar II disorder Current Visit: Yes Status: Chronic (5) Insomnia Current Visit: Yes Status: Chronic - Initial Treatment Plan Initial Treatment Plan: Psychoeducation. Sleep hygiene. Motivational counseling. Medications revisited. Continuity of care : zyprexa 20 mg po daily + gabapentin 400 mg po tid + trazodone 50 mg po hs (added to regimen at patient's request). Side effects/benefits of these molecules are discussed with the patient. Risk of priapism explained to patient (has used trazodone in the past without any problem, as per self-report). Consent (verbal) received. Observation.
[2019-11-14] MEDS: GABAPENTIN 400 MG CAPSULE PO SCH (21:30)
[2019-11-14] MEDS: THIAMINE HCL 100 MG TABLET (FP) PO SCH (21:30)
[2019-11-14] MEDS: PANTOPRAZOLE 20 MG TABLET PO SCH (21:30)
[2019-11-14] MEDS: traZODone HCL 50 MG TABLET (FP) PO SCH (22:51)
[2019-11-14] MEDS: MELATONIN 5 MG TABLETS PO SCH (22:51)
[2019-11-15] MEDS: GABAPENTIN 400 MG CAPSULE PO SCH ×3 (06:45→21:07)
[2019-11-15] MEDS ORDERED: OLANZapine 10 MG TABLET ONE (08:34)
[2019-11-15] MEDS ORDERED: PANTOPRAZOLE 20 MG TABLET PO ONE (08:34)
[2019-11-15] MEDS: NICOTINE 21 MG/24 HOURS TOPICAL PATCH TD SCH (09:43)
[2019-11-15] MEDS: PANTOPRAZOLE 20 MG TABLET PO SCH ×2 (09:43→21:07)
[2019-11-15] MEDS: PRENATAL VITAMINS W/ FOLIC ACID TABLET (FP) PO SCH (09:43)
[2019-11-15] MEDS ORDERED: OLANZapine 10 MG TABLET PO SCH (10:00)
[2019-11-15] MEDS ORDERED: NICOTINE 7 MG/24 HOURS TOPICAL PATCH TD SCH ×2 (10:00)
[2019-11-15] MEDS: NICOTINE POLACRILEX 2 MG GUM BUC PRN (13:26)
[2019-11-15] MEDS: THIAMINE HCL 100 MG TABLET (FP) PO SCH (21:07)
[2019-11-15] MEDS: OLANZapine 10 MG TABLET PO SCH (21:08)
[2019-11-15] MEDS: traZODone HCL 50 MG TABLET (FP) PO SCH (22:40)
[2019-11-15] MEDS: MELATONIN 5 MG TABLETS PO SCH (22:40)
[2019-11-16] MEDS: GABAPENTIN 400 MG CAPSULE PO SCH ×4 (06:15→21:49)
[2019-11-16] MEDS: NICOTINE 21 MG/24 HOURS TOPICAL PATCH TD SCH (09:52)
[2019-11-16] MEDS: PRENATAL VITAMINS W/ FOLIC ACID TABLET (FP) PO SCH (09:52)
[2019-11-16] MEDS: PANTOPRAZOLE 20 MG TABLET PO SCH ×2 (09:52→21:48)
[2019-11-16] MEDS: hydrOXYzine PAMOATE 50 MG CAPSULE (FP) PO PRN (15:39)
[2019-11-16] MEDS: NICOTINE POLACRILEX 2 MG GUM BUC PRN (15:41)
[2019-11-16] MEDS: THIAMINE HCL 100 MG TABLET (FP) PO SCH (21:49)
[2019-11-16] MEDS: OLANZapine 10 MG TABLET PO SCH (21:49)
[2019-11-16] MEDS: traZODone HCL 50 MG TABLET (FP) PO SCH (23:19)
[2019-11-16] MEDS: MELATONIN 5 MG TABLETS PO SCH (23:20)
[2019-11-17] MEDS: PRENATAL VITAMINS W/ FOLIC ACID TABLET (FP) PO SCH (10:28)
[2019-11-17] MEDS: NICOTINE 21 MG/24 HOURS TOPICAL PATCH TD SCH (10:29)
[2019-11-17] MEDS: PANTOPRAZOLE 20 MG TABLET PO SCH ×2 (10:29→21:31)
[2019-11-17] MEDS: GABAPENTIN 400 MG CAPSULE PO SCH ×3 (10:29→21:31)
[2019-11-17] MEDS: hydrOXYzine PAMOATE 50 MG CAPSULE (FP) PO PRN (10:29)
[2019-11-17] MEDS: IBUPROFEN 400 MG TABLET (FP) PO PRN (10:31)
[2019-11-17] MEDS: MAG HYDROX/AL HYDROX/SIMETH 30 ML UNIT-DOSE CUP PO PRN (10:31)
[2019-11-17] MEDS: NICOTINE POLACRILEX 2 MG GUM BUC PRN (18:16)
[2019-11-17] MEDS: OLANZapine 10 MG TABLET PO SCH (21:30)
[2019-11-17] MEDS: MELATONIN 5 MG TABLETS PO SCH (21:31)
[2019-11-17] MEDS: traZODone HCL 50 MG TABLET (FP) PO SCH (21:32)
[2019-11-17] MEDS: THIAMINE HCL 100 MG TABLET (FP) PO SCH (21:51)
[2019-11-18] MEDS: GABAPENTIN 400 MG CAPSULE PO SCH ×3 (09:53→21:04)
[2019-11-18] MEDS: NICOTINE 21 MG/24 HOURS TOPICAL PATCH TD SCH (09:53)
[2019-11-18] MEDS: PANTOPRAZOLE 20 MG TABLET PO SCH ×2 (09:54→21:04)
[2019-11-18] MEDS: hydrOXYzine PAMOATE 50 MG CAPSULE (FP) PO PRN ×2 (09:54→15:03)
[2019-11-18] MEDS: PRENATAL VITAMINS W/ FOLIC ACID TABLET (FP) PO SCH (09:54)
[2019-11-18] MEDS: NICOTINE POLACRILEX 2 MG GUM BUC PRN ×2 (15:05→19:02)
[2019-11-18] MEDS: OLANZapine 10 MG TABLET PO SCH (21:04)
[2019-11-18] MEDS: MELATONIN 5 MG TABLETS PO SCH (21:05)
[2019-11-18] MEDS: traZODone HCL 50 MG TABLET (FP) PO SCH (21:05)
[2019-11-18] MEDS: THIAMINE HCL 100 MG TABLET (FP) PO SCH (21:09)
[2019-11-19] MEDS: NICOTINE 21 MG/24 HOURS TOPICAL PATCH TD SCH (10:28)
[2019-11-19] MEDS: PANTOPRAZOLE 20 MG TABLET PO SCH ×2 (10:28→22:01)
[2019-11-19] MEDS: GABAPENTIN 400 MG CAPSULE PO SCH ×3 (10:28→21:41)
[2019-11-19] MEDS: PRENATAL VITAMINS W/ FOLIC ACID TABLET (FP) PO SCH (10:28)
[2019-11-19] MEDS: hydrOXYzine PAMOATE 50 MG CAPSULE (FP) PO PRN (10:28)
[2019-11-19] MEDS: NICOTINE POLACRILEX 2 MG GUM BUC PRN (19:40)
[2019-11-19] MEDS: traZODone HCL 50 MG TABLET (FP) PO SCH (21:40)
[2019-11-19] MEDS: MELATONIN 5 MG TABLETS PO SCH (21:40)
[2019-11-19] MEDS: OLANZapine 10 MG TABLET PO SCH (21:41)
[2019-11-19] MEDS: THIAMINE HCL 100 MG TABLET (FP) PO SCH (21:42)
[2019-11-20] MEDS: GABAPENTIN 400 MG CAPSULE PO SCH ×3 (10:17→21:08)
[2019-11-20] MEDS: NICOTINE 21 MG/24 HOURS TOPICAL PATCH TD SCH (10:17)
[2019-11-20] MEDS: PANTOPRAZOLE 20 MG TABLET PO SCH ×2 (10:18→21:08)
[2019-11-20] MEDS: hydrOXYzine PAMOATE 50 MG CAPSULE (FP) PO PRN (10:18)
[2019-11-20] MEDS: PRENATAL VITAMINS W/ FOLIC ACID TABLET (FP) PO SCH (10:18)
[2019-11-20] MEDS: NICOTINE POLACRILEX 2 MG GUM BUC PRN (10:19)
[2019-11-20] MEDS: traZODone HCL 50 MG TABLET (FP) PO SCH (21:07)
[2019-11-20] MEDS: THIAMINE HCL 100 MG TABLET (FP) PO SCH (21:07)
[2019-11-20] MEDS: OLANZapine 10 MG TABLET PO SCH (21:07)
[2019-11-20] MEDS: MELATONIN 5 MG TABLETS PO SCH (21:08)
[2019-11-21] MEDS: PRENATAL VITAMINS W/ FOLIC ACID TABLET (FP) PO SCH (09:56)
[2019-11-21] MEDS: NICOTINE 21 MG/24 HOURS TOPICAL PATCH TD SCH (09:56)
[2019-11-21] MEDS: PANTOPRAZOLE 20 MG TABLET PO SCH ×2 (09:56→21:37)
[2019-11-21] MEDS: GABAPENTIN 400 MG CAPSULE PO SCH ×3 (09:57→21:38)
[2019-11-21] MEDS: hydrOXYzine PAMOATE 50 MG CAPSULE (FP) PO PRN (09:57)
[2019-11-21] MEDS: NICOTINE POLACRILEX 2 MG GUM BUC PRN (16:19)
[2019-11-21] MEDS: THIAMINE HCL 100 MG TABLET (FP) PO SCH (21:37)
[2019-11-21] MEDS: OLANZapine 10 MG TABLET PO SCH (21:37)
[2019-11-21] MEDS: traZODone HCL 50 MG TABLET (FP) PO SCH (21:38)
[2019-11-21] MEDS: MELATONIN 5 MG TABLETS PO SCH (21:38)
[2019-11-22] MEDS: hydrOXYzine PAMOATE 50 MG CAPSULE (FP) PO PRN (10:01)
[2019-11-22] MEDS: GABAPENTIN 400 MG CAPSULE PO SCH ×3 (10:01→21:23)
[2019-11-22] MEDS: PRENATAL VITAMINS W/ FOLIC ACID TABLET (FP) PO SCH (10:01)
[2019-11-22] MEDS: PANTOPRAZOLE 20 MG TABLET PO SCH ×2 (10:01→21:23)
[2019-11-22] MEDS: NICOTINE 21 MG/24 HOURS TOPICAL PATCH TD SCH (10:03)
[2019-11-22] MEDS: NICOTINE POLACRILEX 2 MG GUM BUC PRN (19:08)
[2019-11-22] MEDS: MELATONIN 5 MG TABLETS PO SCH (21:23)
[2019-11-22] MEDS: THIAMINE HCL 100 MG TABLET (FP) PO SCH (21:23)
[2019-11-22] MEDS: traZODone HCL 50 MG TABLET (FP) PO SCH (21:24)
[2019-11-22] MEDS: OLANZapine 10 MG TABLET PO SCH (21:24)
[2019-11-23] MEDS: PANTOPRAZOLE 20 MG TABLET PO SCH ×2 (09:43→21:38)
[2019-11-23] MEDS: NICOTINE 21 MG/24 HOURS TOPICAL PATCH TD SCH (09:43)
[2019-11-23] MEDS: hydrOXYzine PAMOATE 50 MG CAPSULE (FP) PO PRN (09:43)
[2019-11-23] MEDS: PRENATAL VITAMINS W/ FOLIC ACID TABLET (FP) PO SCH (09:43)
[2019-11-23] MEDS: GABAPENTIN 400 MG CAPSULE PO SCH ×3 (09:43→21:38)
[2019-11-23] MEDS: MELATONIN 5 MG TABLETS PO SCH (21:38)
[2019-11-23] MEDS: traZODone HCL 50 MG TABLET (FP) PO SCH (21:39)
[2019-11-23] MEDS: THIAMINE HCL 100 MG TABLET (FP) PO SCH (21:39)
[2019-11-23] MEDS: OLANZapine 10 MG TABLET PO SCH (21:39)
[2019-11-24] MEDS: GABAPENTIN 400 MG CAPSULE PO SCH ×3 (10:24→21:07)
[2019-11-24] MEDS: NICOTINE 21 MG/24 HOURS TOPICAL PATCH TD SCH (10:24)
[2019-11-24] MEDS: PANTOPRAZOLE 20 MG TABLET PO SCH ×2 (10:24→21:07)
[2019-11-24] MEDS: hydrOXYzine PAMOATE 50 MG CAPSULE (FP) PO PRN (10:24)
[2019-11-24] MEDS: PRENATAL VITAMINS W/ FOLIC ACID TABLET (FP) PO SCH (10:24)
[2019-11-24] MEDS: ACETAMINOPHEN 325 MG TABLET (FP) PO PRN (12:19)
[2019-11-24] MEDS: MAG HYDROX/AL HYDROX/SIMETH 30 ML UNIT-DOSE CUP PO PRN (12:20)
[2019-11-24] MEDS: IBUPROFEN 400 MG TABLET (FP) PO PRN (18:32)
[2019-11-24] MEDS: THIAMINE HCL 100 MG TABLET (FP) PO SCH (21:07)
[2019-11-24] MEDS: NICOTINE POLACRILEX 2 MG GUM BUC PRN (21:08)
[2019-11-24] MEDS: OLANZapine 10 MG TABLET PO SCH (22:40)
[2019-11-24] MEDS: traZODone HCL 50 MG TABLET (FP) PO SCH (22:56)
[2019-11-24] MEDS: MELATONIN 5 MG TABLETS PO SCH (22:56)
[2019-11-25] MEDS: hydrOXYzine PAMOATE 50 MG CAPSULE (FP) PO PRN (09:57)
[2019-11-25] MEDS: NICOTINE 21 MG/24 HOURS TOPICAL PATCH TD SCH (09:57)
[2019-11-25] MEDS: GABAPENTIN 400 MG CAPSULE PO SCH ×3 (09:57→21:46)
[2019-11-25] MEDS: PRENATAL VITAMINS W/ FOLIC ACID TABLET (FP) PO SCH (09:57)
[2019-11-25] MEDS: PANTOPRAZOLE 20 MG TABLET PO SCH ×2 (09:57→21:46)
[2019-11-25] MEDS: NICOTINE POLACRILEX 2 MG GUM BUC PRN (14:36)
[2019-11-25] MEDS: THIAMINE HCL 100 MG TABLET (FP) PO SCH (21:46)
[2019-11-25] MEDS: MELATONIN 5 MG TABLETS PO SCH (21:46)
[2019-11-25] MEDS: OLANZapine 10 MG TABLET PO SCH (21:47)
[2019-11-25] MEDS: traZODone HCL 50 MG TABLET (FP) PO SCH (21:47)
[2019-11-26] MEDS: hydrOXYzine PAMOATE 50 MG CAPSULE (FP) PO PRN (10:58)
[2019-11-26] MEDS: GABAPENTIN 400 MG CAPSULE PO SCH ×3 (10:58→21:07)
[2019-11-26] MEDS: PRENATAL VITAMINS W/ FOLIC ACID TABLET (FP) PO SCH (10:58)
[2019-11-26] MEDS: NICOTINE 21 MG/24 HOURS TOPICAL PATCH TD SCH (10:58)
[2019-11-26] MEDS: PANTOPRAZOLE 20 MG TABLET PO SCH ×2 (10:58→21:06)
[2019-11-26] MEDS: NICOTINE POLACRILEX 2 MG GUM BUC PRN ×2 (11:00→14:11)
[2019-11-26] MEDS: THIAMINE HCL 100 MG TABLET (FP) PO SCH (21:06)
[2019-11-26] MEDS: traZODone HCL 50 MG TABLET (FP) PO SCH (21:07)
[2019-11-26] MEDS: OLANZapine 10 MG TABLET PO SCH (21:07)
[2019-11-26] MEDS: MELATONIN 5 MG TABLETS PO SCH (21:07)
[2019-11-27] MEDS: IBUPROFEN 400 MG TABLET (FP) PO PRN ×2 (08:49→19:48)
[2019-11-27] MEDS: MAGNESIUM HYDROX 2400MG/30ML ORAL SUSPENSION 30 ML CUP PO PRN (08:49)
[2019-11-27] MEDS: NICOTINE 21 MG/24 HOURS TOPICAL PATCH TD SCH (10:42)
[2019-11-27] MEDS: PANTOPRAZOLE 20 MG TABLET PO SCH ×2 (10:42→21:27)
[2019-11-27] MEDS: GABAPENTIN 400 MG CAPSULE PO SCH ×3 (10:42→21:28)
[2019-11-27] MEDS: PRENATAL VITAMINS W/ FOLIC ACID TABLET (FP) PO SCH (10:43)
[2019-11-27] MEDS: MAG HYDROX/AL HYDROX/SIMETH 30 ML UNIT-DOSE CUP PO PRN ×2 (11:06→23:19)
[2019-11-27] MEDS: ACETAMINOPHEN 325 MG TABLET (FP) PO PRN (11:06)
--- NOTE | 2019-11-27 15:06 | PN ---
[facility] Progress Note Note: Patient is scheduled for discharge on 11/30/19. Scripts for 30 days supply of medications(Zyprexa 20 mg/hs, Gabapentin 400 mg/TID, Trazadone 50 mg/hs) will be electronically transmitted to [facility] [address] [place], [place] [id number]
[2019-11-27] MEDS: THIAMINE HCL 100 MG TABLET (FP) PO SCH (21:28)
[2019-11-27] MEDS: MELATONIN 5 MG TABLETS PO SCH (22:35)
[2019-11-27] MEDS: traZODone HCL 50 MG TABLET (FP) PO SCH (22:53)
[2019-11-27] MEDS: OLANZapine 10 MG TABLET PO SCH (22:53)
[2019-11-28] MEDS: PRENATAL VITAMINS W/ FOLIC ACID TABLET (FP) PO SCH (09:58)
[2019-11-28] MEDS: NICOTINE 21 MG/24 HOURS TOPICAL PATCH TD SCH (09:58)
[2019-11-28] MEDS: PANTOPRAZOLE 20 MG TABLET PO SCH ×2 (09:58→21:06)
[2019-11-28] MEDS: GABAPENTIN 400 MG CAPSULE PO SCH ×3 (09:59→21:06)
[2019-11-28] MEDS: IBUPROFEN 400 MG TABLET (FP) PO PRN (10:00)
[2019-11-28] MEDS: MAG HYDROX/AL HYDROX/SIMETH 30 ML UNIT-DOSE CUP PO PRN (16:33)
[2019-11-28] MEDS: ACETAMINOPHEN 325 MG TABLET (FP) PO PRN (16:33)
[2019-11-28] MEDS: NICOTINE POLACRILEX 2 MG GUM BUC PRN ×2 (16:34→18:37)
[2019-11-28] MEDS: THIAMINE HCL 100 MG TABLET (FP) PO SCH (21:06)
[2019-11-28] MEDS: OLANZapine 10 MG TABLET PO SCH (21:07)
[2019-11-28] MEDS: traZODone HCL 50 MG TABLET (FP) PO SCH (21:07)
[2019-11-28] MEDS: MELATONIN 5 MG TABLETS PO SCH (22:46)
[2019-11-29] MEDS: PANTOPRAZOLE 20 MG TABLET PO SCH ×2 (09:43→21:31)
[2019-11-29] MEDS: GABAPENTIN 400 MG CAPSULE PO SCH ×3 (09:43→21:32)
[2019-11-29] MEDS: PRENATAL VITAMINS W/ FOLIC ACID TABLET (FP) PO SCH (09:44)
[2019-11-29] MEDS: NICOTINE 21 MG/24 HOURS TOPICAL PATCH TD SCH (09:44)
[2019-11-29] MEDS: MAGNESIUM HYDROX 2400MG/30ML ORAL SUSPENSION 30 ML CUP PO PRN (11:54)
[2019-11-29] MEDS: ACETAMINOPHEN 325 MG TABLET (FP) PO PRN (11:55)
[2019-11-29] MEDS: IBUPROFEN 400 MG TABLET (FP) PO PRN (15:16)
[2019-11-29] MEDS: THIAMINE HCL 100 MG TABLET (FP) PO SCH (21:31)
[2019-11-29] MEDS: OLANZapine 10 MG TABLET PO SCH (21:32)
[2019-11-29] MEDS: traZODone HCL 50 MG TABLET (FP) PO SCH (21:32)
[2019-11-29] MEDS: MELATONIN 5 MG TABLETS PO SCH (22:50)
[2019-11-30] MEDS: MAGNESIUM HYDROX 2400MG/30ML ORAL SUSPENSION 30 ML CUP PO PRN (06:30)
[2019-11-30 06:56] VITALS: BP 116/71; PULSE 66; TEMP 97.5
--- NOTE | 2019-11-30 08:29 | DS ---
[facility] Rehab Discharge Summary - [facility] Rehab Discharge Summary Admission Date: 11/14/19 Discharge Date: 11/30/19 - History Present History: Alcohol dependence - Discharge Physical Exam Vital Signs: Vital Signs Temperature 97.5 F L 11/30/19 06:28 Pulse Rate 66 11/30/19 06:28 Respiratory Rate 18 11/30/19 06:28 Blood Pressure 116/71 11/30/19 06:28 O2 Sat by Pulse Oximetry (%) 98 11/30/19 06:28 ROS: denies shakes, headache, sweats, fever, cough and sob PE; alert and oriented x 3 skin warm and dry car s1s2 resp cta bl gi nt,nd ext full, rom amb ad rakel denies si/hi A/P: alcohol dependence Patient is medically stable for d/c aftercare arranged fro [facility], appt 12/14/2019 at 9am - Treatment Discharge Condition: Discharge condition good, Rehabilitated safely, Responded well, Outpatient referral accepted Hospital Course: Patient d/c from rehab today for alcohol dependence. Patient is medically stable and denies SI/HI. During course of treatment, patient attended group meetings, 1:1 sessions with counseling team and evaluation and treatment by psych team. Aftercare arranged for [facility], appt 12/14/2019 at 9am. Patient medically advised to follow up with PCP and OTP as recommended to maintain sobriety. States he does not need refill of medication as he has medication at home. Ambulatory Orders Clonazepam [Klonopin] 1 mg PO DAILY 11/09/19 Omeprazole 20 mg PO BID 11/09/19 Gabapentin 400 mg PO TID #90 cap 11/27/19 Olanzapine [Zyprexa] 20 mg PO DAILY #30 tablet 11/27/19 traZODone HCL [Desyrel -] 50 mg PO HS #30 tablet 11/27/19 - Medication Discharge Medications: Ambulatory Orders Clonazepam [Klonopin] 1 mg PO DAILY 11/09/19 Omeprazole 20 mg PO BID 11/09/19 Gabapentin 400 mg PO TID #90 cap 11/27/19 Olanzapine [Zyprexa] 20 mg PO DAILY #30 tablet 11/27/19 traZODone HCL [Desyrel -] 50 mg PO HS #30 tablet 11/27/19 - Medication-Assisted Treatment (MAT) Medication-Assisted Treatment (MAT): No - Discharge Instructions Diet, activity, other medical instructions: Diet: reg as tolerated Activity: amb ad rakel Other medical instructions: f/u with pcp as recommended - Follow-up Referral Minutes to complete discharge: 30 - AMA Did Patient Leave Against Medical Advice: No
[2019-11-30] MEDS: GABAPENTIN 400 MG CAPSULE PO SCH (09:36)
[2019-11-30] MEDS: PRENATAL VITAMINS W/ FOLIC ACID TABLET (FP) PO SCH (09:36)
[2019-11-30] MEDS: hydrOXYzine PAMOATE 50 MG CAPSULE (FP) PO PRN (09:37)
== END 2019-11-30 09:49 | disposition home or self-care (01) | DRG 772 ==
LOC: YASAS 14:17 → Y3W 14:19
PROVIDERS: ADMIT Allergy & Immunology; ATTEND Allergy & Immunology
PROC: HZ42ZZZ Group Counseling for Substance Abuse Treatment, Cognitive-Behavioral (ICD-10-PCS; principal; 2019-11-14)
DX: F10.20 Alcohol dependence, uncomplicated (principal); F14.20 Cocaine dependence, uncomplicated; F17.210 Nicotine dependence, cigarettes, uncomplicated; F31.81 Bipolar II disorder; G47.00 Insomnia, unspecified